=== PATIENT | male | born 1985 | race Caucasian/White ===

== ENCOUNTER 2019-03-02 09:58 | Inpatient (IN) ==
--- NOTE | 2019-03-02 10:55 | Emergency Department Note ---
ED Disposition Clinical Impression: Spontaneous pneumothorax Disposition: Admitted As Inpatient Condition on Discharge: Fair Referrals: Provider,Referral, [Referring] - - Critical Care Critical Care Time: No Attestation: On 03/02/19, the high probability of a clinically significant, sudden or life threatening deterioration of the following system(s) required my full and direct attention, intervention and personal management. The time I documented below is in addition to time spent performing reported procedures but includes the following listed in this critical care notation. Medical Decision Making - George Inquiry Pt receiving controlled substance: Yes George was queried for this patient: No Reason not queried -: Emergent pt cond-no time Risks and benefits of using a controlled substance: were not discussed with pt by me Vital Signs: 03/02/19 10:21 03/02/19 10:57 03/02/19 11:09 Temperature 98.7 F 98 F Temperature Source Oral Oral Pulse Rate [Right Apical] 98 H 70 62 Respiratory Rate 18 18 Blood Pressure [Right Arm] 122/73 132/87 132/87 Blood Pressure Mean [Right Arm] 89 102 102 Blood Pressure Source [Right Arm] Automatic Cuff Blood Pressure Position [Right Arm] Sitting 02 Sat by Pulse Oximetry 100 98 96 Oxygen Delivery Method Room Air Oxygen Flow Rate (LPM) 03/02/19 11:53 03/02/19 12:05 03/02/19 12:08 Temperature Temperature Source Pulse Rate [Right Apical] 59 L 87 56 L Respiratory Rate 15 16 Blood Pressure [Right Arm] 117/75 173/90 H 126/75 Blood Pressure Mean [Right Arm] 89 117 92 Blood Pressure Source [Right Arm] Automatic Cuff Automatic Cuff Automatic Cuff Blood Pressure Position [Right Arm] Sitting Supine Sitting 02 Sat by Pulse Oximetry 98 94 L 97 Oxygen Delivery Method Nasal Cannula Room Air Oxygen Flow Rate (LPM) 2 03/02/19 12:34 Temperature Temperature Source Pulse Rate [Right Apical] 65 Respiratory Rate Blood Pressure [Right Arm] 152/57 H Blood Pressure Mean [Right Arm] 88 Blood Pressure Source [Right Arm] Automatic Cuff Blood Pressure Position [Right Arm] Sitting 02 Sat by Pulse Oximetry 99 Oxygen Delivery Method Oxygen Flow Rate (LPM) - Lab Data Lab Results 03/02/19 11:50: WBC 14.0 H, RBC 4.73, Hgb 14.5, Hct 42.0, MCV 88.7, MCH 30.6, MCHC 34.5, RDW 12.7, Plt Count 297, MPV 7.0 L, Neut % (Auto) 58.6, Lymph % (Auto) 27.4, [place] % (Auto) 5.4, Eos % (Auto) 8.1, Baso % (Auto) 0.5, Neut # ( Auto) 8.2 H, Lymph # (Auto) 3.8, [place] # (Auto) 0.8, Eos # (Auto) 1.1 H, Baso # (Auto) 0.1 03/02/19 11:50: Sodium 138, Potassium 3.9, Chloride 102, Carbon Dioxide 28, Anion Gap 11.9, BUN 9, Creatinine 0.77, Estimated Creat Clear 188, Estimated GFR 116, Est GFR ( Amer) 141, Glucose 87, Calcium 9.0 Result diagrams: 03/02/19 11:50 03/02/19 11:50 Orders (Tests/Meds): ED MEDICATIONS Discontinued Medications Generic Name Dose Route Start Last Admin Trade Name Freq PRN Reason Stop Dose Admin Ketamine HCl 100 mg 03/02/19 12:00 Ketamine 500mg/10ml Vial IV 03/02/19 12:01 ONCE ONE Morphine Sulfate 4 mg 03/02/19 11:06 03/02/19 12:00 Morphine 4mg/Ml Syringe IV 03/02/19 11:07 4 mg ONCE ONE Administration Ondansetron HCl 4 mg 03/02/19 11:06 03/02/19 12:00 Zofran 4mg/2ml Vial IV 03/02/19 11:07 4 mg ONCE ONE Administration - Radiology Data #1 Image(s): Chest Image Reviewed: Yes I reviewed the patient's radiology image, Yes I have rev iewed radiologist's interpretation IMPRESSION: Moderate-sized right-sided hydropneumothorax with suggestion of some mild tension. Concur with ER preliminary report Dictated By: Varinder Nix MD Signed By: <Electronically signed by Varinder Nix MD in [place]> 03/02/19 1104 #2 Image(s): Chest Image Reviewed: Yes I reviewed the patient's radiology image Chest tube in good position with good reexpansion of the lung. - Physician Consults Physician Consulted: Allran Time: 11:25 Reason -: Surgical Eval/Care Comment/Response: Requests that I put in thoracostomy tube. 20 cm H2O suction Medical Decision Narrative: 12:00 PM: The patient had poor venous access and emergency department nurse was unable to establish IV. PICC line nurse called to the emergency department and she established a peripheral IV with ultrasound. As I was starting to prep the patient for thoracostomy tube, Dr. Jay arrived and states that he will put in the chest tube himself. General Adult HPI - General Stated complaint: soa Time Seen by Provider: 03/02/19 11:00 Mode of Arrival: Ambulatory Source of Information: Patient Limitations: No Limitations Description of Symptoms (Recalled from ER Triage Doc. by RN): pt C/O SOA and bed chest and back pain from coughing for 2 weeks. Pt states he was seen in the ER 2 weeks ago and ist getting any better - History of Present Illness HPI narrative: Complains of right sided pleuritic chest pain and cough for 2 weeks, steadily worsening. Seen at the [place] emergency department a week ago with a negative work-up, started on antibiotic and steroids. Patient is a smoker. No chronic medical problems except that he takes Suboxone for opiate addiction, clean for 2 years. Seen at the urgent treatment center and had a chest x-ray which shows a right-sided pneumothorax, sent to the emergency room. Last ate at 2 in the morning. Only sips of coffee since then. - Related Data Home Medications Medication Instructions Recorded Confirmed Buprenorphine HCl/Naloxone HCl 1 film SL DAILY 03/02/19 03/02/19 [Suboxone 8 mg-2 mg Sl Film] Allergies Allergy/AdvReac Type Severity Reaction Status Date / Time codeine [CODEINE] Allergy Intermediate NA-NAUSEA Verified 03/02/19 12:45 tramadol [TRAMADOL] Allergy Intermediate NA-NAUSEA Verified 03/02/19 12:45 [facility] History - Hepatitis A Screen Drug use history?: No High risk sexual behaviors?: No History of sexually transmitted infection?: No Currently employed?: No Childcare worker?: No Do you have indoor plumbing?: Yes Do you have electricity?: Yes Attestation statement:: This patient has been screened for Hepatitis A risk factors. I have reviewed the patient's past medical history: Yes - Social History Alcohol Intake: never Occupational Status: employed - Psychiatric History Expresses thoughts of harming self/others: None Suicide Plan Description: No Plan ROS Obtained: Yes All systems reviewed & no additional complaints - Constitutional Constitutional: Denies fever(s) - Cardiovascular Cardiovascular: Reports chest pain - Respiratory Respiratory: Yes cough, Yes non-productive cough, Yes dyspnea Physical Exam - General General appearance: alert, in no apparent distress - Head Head exam: atraumatic, normocephalic - Eye Eye exam: Present: normal appearance, PERRL, EOMI - ENT ENT exam: Present: mucous membranes moist - Neck Neck exam: Present: normal inspection, trachea midline, other (No palpable subcutaneous air) - Chest Chest inspection: Present: normal inspection - Respiratory Respiratory exam: Present: other (Decreased breath sounds right side) - Cardiovascular Cardiovascular exam: Present: regular rate, normal rhythm, normal heart sounds - Abdominal Exam Abdominal exam: Present: soft. Absent: distention, tenderness - Extremities Exam Extremities exam: Present: normal inspection, full ROM - Neurological Exam Neurological exam: Present: alert, oriented X3 - Psychiatric Psychiatric exam: Present: normal affect, normal mood - Skin Skin exam: Present: warm, dry Procedures - Procedural Sedation Indication: other (pneumothorax) ASA Class: I Preparation: quality assurance monitor final applied, pulse oximeter, supplemental O2 applied, suction/airway equipment at bedside, IV secured Ketamine: IV Ketamine dose (mg): 100
[2019-03-02 12:04] LABS: Anion Gap 11.9 mEq/L (5-15); Potassium 3.9 mmoL/L (3.5-5.1)
[2019-03-02 12:07] LABS: Basophils # 0.1 K/mm3 (0-0.2); Basophils % 0.5 % (0.1-2.0); Eosinophils # 1.1 K/mm3 (0.0-0.4); Eosinophils % 8.1 % (0.1-12.0); Hemoglobin 14.5 g/dL (14.1-18.0); Lymphocytes # 3.8 K/mm3 (0.7-4.5); Lymphocytes % 27.4 % (10-50); Mean Corpuscular HGB Conc 34.5 g/dL (31.8-35.4); Mean Corpuscular Hemoglobin 30.6 pg (27.0-31.2); Mean Corpuscular Volume 88.7 fl (80-94); Monocytes # 0.8 K/mm3 (0.1-1.0); Monocytes % 5.4 % (1.7-9.3); Neutrophils # 8.2 K/mm3 (1.8-7.8); Neutrophils % 58.6 % (37.0-80.0); Platelet Count 297 K/mm3 (142-424); Red Blood Count 4.73 M/mm3 (4.60-6.20); Red Cell Distribution Width 12.7 % (11.5-17.5)
--- NOTE | 2019-03-02 13:16 | History & Physical Report ---
*Admission Date: 03/02/19 *Chief complaint: Cough, shortness of breath *History of present illness: Patient is a 33-year-old white male. He states that for a couple of weeks he has had progressive symptoms of cough and had developed some right-sided chest pain. He had been seen apparently about a week ago in [place] and had a negative work-up. Due to ongoing symptoms he presented to [facility] emergency department where he had a chest x-ray which revealed findings of moderate sized right-sided pneumothorax. Surgery was contacted and plan was made for admission and chest tube placement due to his symptomatology. [facility] History I have reviewed the patient's past medical history: Yes *Have you ever received a pneumonia vaccine?: No *Have you received a flu vaccine this season?: No - *Social History Smoking Status: Current every day smoker Alcohol Intake: never *Occupational Status:: employed *Travel in the last 8 weeks: None - Psychiatric History Expresses thoughts of harming self/others: None Suicide Plan Description: No Plan Family Hx:: No significant family history Review of Systems - Review of Systems Review of systems:: pertinent systems reviewed and negative unless documented below Meds Home Medications Medication Instructions Recorded Confirmed Type Buprenorphine HCl/Naloxone HCl 1 film SL DAILY 03/02/19 03/02/19 History [Suboxone 8 mg-2 mg Sl Film] Allergies Allergy/AdvReac Type Severity Reaction Status Date / Time codeine [CODEINE] Allergy Intermediate NA-NAUSEA Verified 03/02/19 12:45 tramadol [TRAMADOL] Allergy Intermediate NA-NAUSEA Verified 03/02/19 12:45 Exam Vital signs and Labs for Last 24 Hours: Temp Pulse Resp BP Pulse Ox 98 F 65 16 152/57 H 99 03/02/19 10:57 03/02/19 12:34 03/02/19 12:18 03/02/19 12:34 03/02/19 12:34 Laboratory Results - last 24 hr 03/02/19 11:50: WBC 14.0 H, RBC 4.73, Hgb 14.5, Hct 42.0, MCV 88.7, MCH 30.6, MCHC 34.5, RDW 12.7, Plt Count 297, MPV 7.0 L, Neut % (Auto) 58.6, Lymph % (Auto) 27.4, [place] % (Auto) 5.4, Eos % (Auto) 8.1, Baso % (Auto) 0.5, Neut # (Auto) 8.2 H, Lymph # (Auto) 3.8, [place] # (Auto) 0.8, Eos # (Auto) 1.1 H, Baso # (Auto) 0.1 03/02/19 11:50: Sodium 138, Potassium 3.9, Chloride 102, Carbon Dioxide 28, Anion Gap 11.9, BUN 9, Creatinine 0.77, Estimated Creat Clear 188, Estimated GFR 116, Est GFR ( Amer) 141, Glucose 87, Calcium 9.0 I & O for Last 24 hours: Intake & Output 02/28/19 03/01/19 03/02/19 03/03/19 11:59 11:59 11:59 11:59 Weight 215 lb - *Routine HEENT Exam Head: Present: normocephalic Eye: Present: EOMI, PERRL ENT: Present: mucous membranes moist - *Routine Neck Exam Present: supple. Absent: lymphadenopathy - *Routine Respiratory Exam Present: decreased breath sounds Comments: Somewhat distant breath sounds on the right - *Routine Cardiovascular Exam Present: RRR - *Routine Abdominal Exam Present: soft, normoactive bowel sounds. Absent: tenderness - *Routine Extremities Exam Absent: cyanosis, clubbing, edema - *Routine Skin Exam Present: warm. Absent: rash - *Routine Neurological Exam Present: alert, oriented X3 - Detailed Eye Exam Eyelids: Left normal inspection Assessment and Plan - Assessment and plan all Dx Assessment and Plan for all problems:: Plan for chest tube placement and admission for management of spontaneous pneumothorax
--- NOTE | 2019-03-02 13:19 | Procedure Note ---
[facility] Procedure Note Procedure Note:: Preoperative diagnosis: Right spontaneous pneumothorax Procedure: Placement of right-sided 20 British thoracostomy tube Anesthesia: Local with 100 mg ketamine Patient was maintained on the stretcher in the emergency department. His right chest was prepped and draped in the standard surgical fashion. Local anesthetic was infiltrated in the right anterior lateral chest. Incision was made. Blunt dissection was carried down dissecting superiorly over the underlying rib. Pleural space was entered with wei of air. 20 British chest tube was inserted manipulating it anteriorly and superiorly. It was secured with 0 Surgilon at approximately 18 cm osmel and secured to the Pleur-evac. Clean dry sterile d ressing was applied. Patient tolerated procedure with no immediate complications.
--- NOTE | 2019-03-02 15:22 | Pharmacy Consult Notes ---
[facility] Pharmacy VTE Monitoring - Patient Demographics Admission date: 03/02/19 Report Date: 03/02/19 Time: 15:21 Allergies/Adverse Reactions: Patient Allergies codeine [CODEINE] Allergy (Intermediate, Verified 03/02/19 12:45) NA-NAUSEA tramadol [TRAMADOL] Allergy (Intermediate, Verified 03/02/19 12:45) NA-NAUSEA Height: 1.91 m Weight: 94.347 kg Patient Problems: Current Active Problems (Updated 03/02/19 @ 12:04 by Hola Cintron MD) Spontaneous pneumothorax (Acute) - VTE Risk Labs: VTE Related Lab Results Hgb 14.5 g/dL (14.1-18.0) 03/02/19 11:50 Hct 42.0 % (42.0-52.0) 03/02/19 11:50 Plt Count 297 K/mm3 (142-424) 03/02/19 11:50 BUN 9 mg/dL (7-18) 03/02/19 11:50 Creatinine 0.77 mg/dL (0.70-1.30) 03/02/19 11:50 Estimated Creat Clear 188 mL/min (50-200) 03/02/19 11:50 Was VTE Risk Assessment Performed: Yes VTE Score: 0 VTE Risk Level: Very Low Risk Clinical Trial Participant: No - Prophylaxis VTE Prophylaxis Ordered?: Yes Types of VTE Prophylaxis: TEDS Knee High
--- NOTE | 2019-03-03 07:37 | Progress Note ---
Subjective Patient reports: feels better Narrative: Patient feels much better. No chest pain. Breathing better. Chest tube without air leak. Exam Vital signs and Labs for Last 24 Hours: Temp Pulse Resp BP Pulse Ox 97.8 F 51 L 18 110/61 96 03/03/19 04:00 03/03/19 04:00 03/03/19 04:00 03/03/19 04:00 03/03/19 04:00 Laboratory Results - last 24 hr 03/02/19 11:50: WBC 14.0 H, RBC 4.73, Hgb 14.5, Hct 42.0, MCV 88.7, MCH 30.6, MCHC 34.5, RDW 12.7, Plt Count 297, MPV 7.0 L, Neut % (Auto) 58.6, Lymph % (Auto) 27.4, [place] % (Auto) 5.4, Eos % (Auto) 8.1, Baso % (Auto) 0.5, Neut # (Auto) 8.2 H, Lymph # (Auto) 3.8, [place] # (Auto) 0.8, Eos # (Auto) 1.1 H, Baso # (Auto) 0.1 03/02/19 11:50: Sodium 138, Potassium 3.9, Chloride 102, Carbon Dioxide 28, Anion Gap 11.9, BUN 9, Creatinine 0.77, Estimated Creat Clear 188, Estimated GFR 116, Est GFR ( Amer) 141, Glucose 87, Calcium 9.0 I & O for Last 24 hours: Intake & Output 02/28/19 03/01/19 03/02/19 03/03/19 11:59 11:59 11:59 11:59 Intake Total 1160 / 1160 Output Total 65 / 65 Balance 1095 / 1095 Weight 215 lb 207 lb 15.992 oz Microbiology Reports for the Last 24 Hours: Microbiology 03/02/19 19:25 Sputum - Expectorated Sputum Gram Stain - Final - *Routine Respiratory Exam Present: CTA bilaterally Progress Note: A&P Assessment and Plan for All Diagnoses:: Check chest x-ray and pending this we will plan for placement on waterseal.
--- NOTE | 2019-03-04 07:22 | Progress Note ---
Subjective Patient reports: feels better Exam Vital signs and Labs for Last 24 Hours: Temp Pulse Resp BP Pulse Ox 98.0 F 46 L 15 104/54 L 95 03/04/19 04:00 03/04/19 04:00 03/04/19 04:00 03/04/19 04:00 03/04/19 04:00 I & O for Last 24 hours: Intake & Output 03/01/19 03/02/19 03/03/19 03/04/19 11:59 11:59 11:59 11:59 Intake Total 1520 / 1520 1083 / 1083 Output Total 65 / 65 Balance 1455 / 1455 1083 / 1083 Weight 215 lb 207 lb 15.992 oz 210 lb 1 oz Microbiology Reports for the Last 24 Hours: Microbiology 03/02/19 19:25 Sputum - Expectorated Sputum Gram Stain - Final 03/02/19 19:25 Sputum - Expectorated Sputum Sputum Culture - Preliminary - *Routine Respiratory Exam Present: CTA bilaterally Progress Note: A&P Assessment and Plan for All Diagnoses:: No air leak. CXR this morning reveals no evidence of PTX. Removed chest tube. DC telemetry. Possible discharge later today.
--- NOTE | 2019-03-04 15:51 | Progress Note ---
Subjective Narrative: No complaints. Does have some soreness but this is no worse and he feels much better than upon presentation. Exam Vital signs and Labs for Last 24 Hours: Temp Pulse Resp BP Pulse Ox 97.8 F 58 L 16 129/69 99 03/04/19 08:00 03/04/19 08:00 03/04/19 08:00 03/04/19 08:00 03/04/19 12:00 I & O for Last 24 hours: Intake & Output 03/02/19 03/03/19 03/04/19 03/05/19 11:59 11:59 11:59 11:59 Intake Total 1520 / 1520 1563 / 1563 480 / 480 Output Total 65 / 65 Balance 1455 / 1455 1563 / 1563 480 / 480 Weight 215 lb 207 lb 15.992 oz 210 lb 1 oz Microbiology Reports for the Last 24 Hours: Microbiology 03/02/19 19:25 Sputum - Expectorated Sputum Gram Stain - Final 03/02/19 19:25 Sputum - Expectorated Sputum Sputum Culture - Final Normal Respiratory Jeanne - Routine Chest/Breast/Axilla Exam Comments: Chest tube site clean and dressed Progress Note: A&P Assessment and Plan for All Diagnoses:: Discharge home
--- NOTE | 2019-03-04 15:55 | Discharge Summary ---
General - General Admission date:: 03/02/19 Discharge date: 03/04/19 HPI HPI: Patient is a 33-year-old white male. He states that for a couple of weeks he has had progressive symptoms of cough and had developed some right-sided chest pain. He had been seen apparently about a week ago in [place] and had a negative work-up. Due to ongoing symptoms he presented to [facility] emergency department where he had a chest x-ray which revealed findings of moderate sized right-sided pneumothorax. Surgery was contacted and plan was made for admission and chest tube placement due to his symptomatology. Hospital Course Hospital Course: Patient underwent placement of right thoracostomy tube in the emergency department. This was uneventful. Postprocedure chest x-ray revealed near complete resolution of the pneumothorax. Initially he did have some air leak. Chest tube was placed to 20 cm suction. He was admitted for inpatient management and placed on telemetry. Following morning he felt better. There is no evidence of any air leak. Chest x-ray revealed only a sliver of remaining pneumothorax. Chest tube was placed to waterseal. The next day the patient was doing well. Chest x-ray on the morning of 03/04/2019 revealed no evidence of any residual pneumothorax and there is no evidence of any air leak. Chest tube was removed early that morning. Patient was observed throughout the day and remained asymptomatic regarding chest pain or shortness of breath other than some chest discomfort at the chest tube site. Follow-up PA and lateral chest x- ray that afternoon revealed no evidence of any pneumothorax. Plan was made for discharge home at that time. Patient is to follow-up in the office in 1 week for removal of the chest tube suture. He is to refrain from heavy lifting at work and strenuous activity until follow-up. He is given no additional medications. Objective Vital signs: Temp Pulse Resp BP Pulse Ox 97.8 F 58 L 16 129/69 99 03/04/19 08:00 03/04/19 08:00 03/04/19 08:00 03/04/19 08:00 03/04/19 12:00 - Detailed Eye Exam Eyelids: Left normal inspection Discharge Plan - Patient Discharge Instructions ACTIVITY: No heavy lifting DIET: regular diet Patient Instructions: Pneumothorax, DI for Pneumothorax, DI for Surgical Site Infection, DI for Chest Tube Insertion - Follow up Plan Follow up with: Florentin Jay MD [Staff Physician] - 1 week Disposition: Home, Self-Retirement Medications: Home Medications Medication Instructions Recorded Confirmed Type Buprenorphine HCl/Naloxone HCl 2 film SL DAILY 03/02/19 03/02/19 History [Suboxone 8 mg-2 mg Sl Film] Prescriptions/Medication Reconciliation: Continued Buprenorphine HCl/Naloxone HCl [Suboxone 8 mg-2 mg Sl Film] 2 film SL DAILY
== END 2019-03-04 16:30 | disposition home or self-care (01) | DRG 201 ==
LOC: ER 09:58 → UTC 09:58 → ICU 12:56 → 2ND 03-03 15:00
PROVIDERS: ADMIT Surgery; ATTEND Surgery
CPT/HCPCS: J2405

== ENCOUNTER 2019-03-11 18:06 | Inpatient (IN) | payer MEDICAID, SELFPAY ==
--- NOTE | 2019-03-11 13:32 | XR_ITS ---
XR chest 2V 524 at 1340 hours. HISTORY: . Recent pneumothorax. Recurrent chest pain. ITS.REASON: chest pain ORDERING PHYSICIAN: Florentin Jay MD PATIENT AGE: 33 years Technique: AP PA and lateral CXR COMPARISON is made to the most recent set of chest film from 03/04/2019 Right chest tube was evident on the early CXR from 03/04/2019. The lateral film shows a chest tube removed in the right lung fully expanded Today's study. Reveals a recurrent prominent right pneumothorax / with hydropneumothorax evident towards right base Estimate today's moderate recurrent right pneumothorax at 25%-up to 30 % PTX.. (. It is not as pronounced as the initial pneumothorax seen on 03/02/2019 CXR) Mild atelectasis is seen throughout right lung . There is no shift of the mediastinum.. Heart remains midline. The ranjit and mediastinal structures appear satisfactory. Left ranjit upper normal prominence but unchanged. Left lung clear unremarkable. Scant fluid outlines the fissures on lateral view. Critical result called to [facility] and Dr. Jay's office on 03/11/2019 3:04 PM . IMPRESSION Recurrent.Moderate Right Pneumothorax./With Hydropneumothorax Estimated 25-up to 30% right PTX . No midline shift. Left lung clear
--- NOTE | 2019-03-11 15:52 | HMH.GSHP ---
HPI HPI: Patient is a 33-year-old white male who had presented to the emergency department on 03/02/2019 with a 2-week history of respiratory complaints. He had allegedly been seen in the emergency department in [place] with a negative work-up. When he presented here he was found to have a large right pneumothorax. Surgery was consulted and he underwent placement of right chest tube in the emergency department. This resulted in essentially immediate full expansion of the right lung. He had quick resolution of air leak and the following day his chest tube was placed on waterseal. Serial x-rays revealed no evidence of any recurrent pneumothorax and he had no air leak. Therefore his chest tube was removed without incident in the unload associate hours of 03/04/2019. Patient was observed throughout that day and later that afternoon he underwent follow-up chest x-ray which revealed no evidence of any pneumothorax. Patient was therefore discharged home in the afternoon of 03/04/2019. He was scheduled to follow-up in the office today for chest tube site suture removal and incision inspection. When he presented to the office he was doing well. Denied any shortness of breath or chest pain. Interestingly, he stated that he had some bubbling sensation the day after discharge. This then resolved. Upon further questioning he states that he had some right-sided back pain which he attributed to work. He therefore underwent chest x-ray. This reveals appreciable right-sided pneumothorax measuring, according to the radiology report, 25%. Plan was made for admission for management of recurrent pneumothorax with possible chest tube placement. [facility] History Medical History: Denies:: Cancer *Have you ever received a pneumonia vaccine?: No *Have you received a flu vaccine this season?: No Other Surgeries: Yes: Other - *Social History Smoking Status: Current every day smoker Tobacco Type: cigarettes # Packs/Day (cigarettes): 1 Alcohol Intake: never *Occupational Status:: employed Housing: apartment *Travel in the last 8 weeks: None Family Hx:: Asthma, Cancer, Diabetes, Heart Attack, Hyperlipidemia, Hypertension Review of Systems - Review of Systems Review of systems:: pertinent systems reviewed and negative unless documented below - Constitutional Denies anorexia - Eyes Denies change in vision - ENT Denies abnormal hearing - *Cardiovascular Denies chest pain - *Respiratory Reports cough, Denies shortness of breath - *Gastrointestinal Denies abdominal pain - *Genitourinary Denies difficulty urinating - *Musculoskeletal Reports back pain - *Neurologic Denies dizziness Meds Home Medications Medication Instructions Recorded Confirmed Type Buprenorphine HCl/Naloxone HCl 2 film SL DAILY 03/02/19 03/11/19 History [Suboxone 8 mg-2 mg Sl Film] Allergies Allergy/AdvReac Type Severity Reaction Status Date / Time codeine [CODEINE] Allergy Intermediate NA-NAUSEA Verified 03/11/19 13:24 tramadol [TRAMADOL] Allergy Intermediate NA-NAUSEA Verified 03/11/19 13:24 Exam - *Routine HEENT Exam Head: Present: normocephalic Eye: Present: EOMI, PERRL ENT: Present: mucous membranes moist - *Routine Neck Exam Present: supple. Absent: lymphadenopathy - *Routine Respiratory Exam Comments: He has very slightly decreased breath sounds on the right hemithorax. - *Routine Cardiovascular Exam Present: RRR - *Routine Abdominal Exam Present: soft, normoactive bowel sounds. Absent: tenderness - *Routine Extremities Exam Absent: cyanosis, clubbing, edema - *Routine Skin Exam Present: warm. Absent: rash - *Routine Neurological Exam Present: alert, oriented X3 - Detailed Eye Exam Eyelids: Left normal inspection Assessment and Plan - Assessment and plan all Dx Assessment and Plan for all problems:: Plan will be for direct admission with observation. Incentive spirometer. Repeat chest x-ray tomorrow
--- NOTE | 2019-03-11 15:56 | P.HP_ITS ---
HPI HPI: Patient is a 33-year-old white male who had presented to the emergency department on 03/02/2019 with a 2-week history of respiratory complaints. He had allegedly been seen in the emergency department in [place] with a negative work-up. When he presented here he was found to have a large right pneumothorax. Surgery was consulted and he underwent placement of right chest tube in the emergency department. This resulted in essentially immediate full expansion of the right lung. He had quick resolution of air leak and the follow ing day his chest tube was placed on waterseal. Serial x-rays revealed no evidence of any recurrent pneumothorax and he had no air leak. Therefore his chest tube was removed without incident in the aircraft rigging and controls mechanic hours of 03/04/2019. Patient was observed throughout that day and later that afternoon he underwent follow-up chest x-ray which revealed no evidence of any pneumothorax. Patient was therefore discharged home in the afternoon of 03/04/2019. He was scheduled to follow-up in the office today for chest tube site suture removal and incision inspection. When he presented to the office he was doing well. Denied any shortness of breath or chest pain. Interestingly, he stated that he had some bubbling sensation the day after discharge. This then resolved. Upon further questioning he states that he had some right-sided back pain which he attributed to work. He therefore underwent chest x-ray. This reveals appreciable right- sided pneumothorax measuring, according to the radiology report, 25%. Plan was made for admission for management of recurrent pneumothorax with possible chest tube placement. [facility] History Medical History: Denies:: Cancer *Have you ever received a pneumonia vaccine?: No *Have you received a flu vaccine this season?: No Other Surgeries: Yes: Other - *Social History Smoking Status: Current every day smoker Tobacco Type: cigarettes # Packs/Day (cigarettes): 1 Alcohol Intake: never *Occupational Status:: employed Housing: apartment *Travel in the last 8 weeks: None Family Hx:: Asthma, Cancer, Diabetes, Heart Attack, Hyperlipidemia, Hypertension Review of Systems - Review of Systems Review of systems:: pertinent systems reviewed and negative unless documented below - Constitutional Denies anorexia - Eyes Denies change in vision - ENT Denies abnormal hearing - *Cardiovascular Denies chest pain - *Respiratory Reports cough, Denies shortness of breath - *Gastrointestinal Denies abdominal pain - *Genitourinary Denies difficulty urinating - *Musculoskeletal Reports back pain - *Neurologic Denies dizziness Meds Home Medications Medication Instructions Recorded Confirmed Type Buprenorphine HCl/Naloxone HCl 2 film SL DAILY 03/02/19 03/11/19 History [Suboxone 8 mg-2 mg Sl Film] Allergies Allergy/AdvReac Type Severity Reaction Status Date / Time codeine [CODEINE] Allergy Intermediate NA-NAUSEA Verified 03/11/19 13:24 tramadol [TRAMADOL] Allergy Intermediate NA-NAUSEA Verified 03/11/19 13:24 Exam - *Routine HEENT Exam Head: Present: normocephalic Eye: Present: EOMI, PERRL ENT: Present: mucous membranes moist - *Routine Neck Exam Present: supple. Absent: lymphadenopathy - *Routine Respiratory Exam Comments: He has very slightly decreased breath sounds on the right hemithorax. - *Routine Cardiovascula
[2019-03-11 18:28] VITALS: BP 147/63; PULSE 68; RESP 17; TEMP 36.7; O2SAT 96; BMI 25.9
[2019-03-11 20:00] VITALS: BP 120/67; PULSE 72; RESP 18; TEMP 36.5; O2SAT 97
[2019-03-12] VITALS (23 sets, daily range): BP systolic 100–128; BP diastolic 55–68; PULSE 50–75; RESP 16–20; TEMP 36.4–37.1; O2SAT 95–99; BMI 26.2
--- NOTE | 2019-03-12 03:34 | PC.NURSE ---
Pt. rested well this am. Is alert and oriented. VS have remained stable. Lung sounds are diminished and bowel sounds are active. Pt. has not complained of any pain. Will continue to monitor.
--- NOTE | 2019-03-12 07:00 | XR_ITS ---
XR chest 2V HISTORY: ITS.REASON: CHEST PAIN, PNEUMOTHORAX ORDERING PHYSICIAN: Florentin Jay MD PATIENT AGE: 33 years Technique: PA and lateral chest COMPARISON: Yesterday's PA and lateral chest . FINDINGS: Again see the moderate right pneumothorax.. It appears similar size superiorly overlying the RUL; but I believe slightly larger inferiorly overlying the right lower lobe. Overall estimate 25-30% pneumothorax. No midline shift at mediastinal. Note slight additional fluid at right base reflecting the hydropneumothorax aspect. Slight additional atelectasis at right lower lobe left lung remains clear Left lung clear. Slight additional prominence of pulmonary vascularity bilaterally on today's CXR may reflect some additional IV hydration.... But no overt CHF. Heart is normal in size. Chest wall unremarkable. No obvious rib fractures. T-spine intact. Claudette and mediastinal structures satisfactory IMPRESSION...... 1. Moderate size right pneumothorax again seen. Estimate 25-30% hydropneumothorax with PTX appearing incrementally larger towards right lung base than yesterday CXR study 2. Mediastinum remains midline. No good evidence of tension . Mild atelectasis right lower lobe
--- NOTE | 2019-03-12 07:23 | PC.NURSE ---
REPORTED TO Lina JAMES
--- NOTE | 2019-03-12 09:08 | XR_ITS ---
XR chest portable #2 Performed at 9:05 AM HISTORY: Pneumothorax ITS.REASON: chest tube ORDERING PHYSICIAN: Florentin Jay MD PATIENT AGE: 33 years Technique: AP portable supine chest COMPARISON: pCXR 03/12/2019 at 6:56 AM today Also PCXR 03/11/2019 at 1336 hours FINDINGS: COMPARISON is made to a chest film from earlier today as well as yesterday's CXR the moderate pneumothorax has increased slightly in size on on this morning's the CXR Thus we now see a chest tube placed on the right. It enters at the lower right chest with tip projected over the upper right chest. Right lung is expanded with only a tiny sliver residual apical pneumothorax remaining on this image. The atelectasis has improved at the right lung with right lung reexpansion. The left lung remains clear. The heart is normal in size. The ranjit and mediastinal structures appear satisfactory. I would note the left CP angle was not included on this current chest film IMPRESSION...... Right chest tube now place with right lung reexpanded Only a tiny sliver of residual pneumothorax evident at right lung apex at this point
--- NOTE | 2019-03-12 09:09 | HMH.GSPN ---
Subjective Patient reports: no new complaints Exam Vital signs and Labs for Last 24 Hours: Temp Pulse Resp BP Pulse Ox 97.9 F 60 17 100/66 L 97 03/12/19 07:48 03/12/19 07:48 03/12/19 07:48 03/12/19 07:48 03/12/19 07:48 I & O for Last 24 hours: Intake & Output 03/09/19 03/10/19 03/11/19 03/12/19 11:59 11:59 11:59 11:59 Intake Total 480 / 480 Balance 480 / 480 Weight 210 lb 4 oz - *Routine Respiratory Exam Present: distant breath sounds Progress Note: A&P Assessment and Plan for All Diagnoses:: Chest x-ray this morning reveals persistent approximately 30% pneumothorax. Plan for chest tube placement
--- NOTE | 2019-03-12 09:14 | P.PCN_ITS ---
[facility] Procedure Note Procedure Note:: Preoperative diagnosis: Recurrent spontaneous right pneumothorax Procedure performed: Placement of right 20 [place] thoracostomy tube Anesthesia: 1% Xylocaine, ketamine 75 mg, Versed 2 mg Indications: Patient is a 33-year-old white male. He was admitted last week with spontaneous right pneumothorax. He had chest tube placed which resulted in complete reexpansion of the lung. Chest tube was managed for several days and ultimately removed. Follow-up chest x-ray approximately 8 hours after removal revealed full complete expansion of the lung. Patient was discharged home. He presented to the office for follow-up yesterday and stated that the day after discharge she had some bubbling sensation in the right chest but otherwise has been doing well throughout the week and this resolved very quickly the day after discharge. He therefore underwent chest x-ray. This actually revealed a recurrent pneumothorax measuring 25 to 30% . Patient was admitted for inpatient management. Repeat chest x-ray the following morning revealed persistent moderate-sized pneumothorax. Plan was made for chest tube placement. Procedure: Consent was obtained. Patient was positioned supinely. Right hemithorax was prepped and draped. Local anesthetic was infiltrated in the right anterior lateral chest. Small incision was made approximately 15 mm. Dissection was carried down through subcutaneous tissues and intercostal muscles using blunt dissection over the rib. Pleural space was entered. 20 [place] chest tube was inserted. It was secured at approximately 18 cm omsel with a #2 silk suture horizontal mattress. Please note that additional simple #2 silk was placed centrally for ultimate closure of the site after removal. Xeroform dressing and clean dry sterile dressing was applied. Patient tolerated with no complications.
--- NOTE | 2019-03-12 09:32 | PC.NURSE ---
procedure performed on 2nd floor.
--- NOTE | 2019-03-12 11:29 | P.CONPHA_ITS ---
[facility] VTE Monitoring - Patient Demographics Admission date: 03/12/19 Report Date: 03/12/19 Time: 11:29 Allergies/Adverse Reactions: Patient Allergies codeine [CODEINE] Allergy (Intermediate, Verified 03/11/19 13:24) NA-NAUSEA tramadol [TRAMADOL] Allergy (Intermediate, Verified 03/11/19 13:24) NA-NAUSEA Height: 1.91 m Weight: 95.368 kg - VTE Risk Was VTE Risk Assessment Performed: Yes VTE Score: 0 VTE Risk Level: Very Low Risk - Prophylaxis Location of Applied Device: Refused - VTE Diagnosis Confirmed Comment: KAREN MARTINEZ ORDER PLACED
--- NOTE | 2019-03-12 11:29 | HMH.PHAINT ---
MED REC-PATIENT ONLY REPORTS SUBOXONE.
--- NOTE | 2019-03-12 13:50 | PC.NURSE ---
CHEST TUBE INSERTION TO RIGHT SIDE PERFORMED AT BEDSIDE BY DR. SOMMER AT 0830. VSS. NO DISTRESS NOTED. WILL CONTINUE TO MONITOR
[2019-03-13] VITALS (14 sets, daily range): BP systolic 99–140; BP diastolic 59–70; PULSE 5–81; RESP 16–18; TEMP 36.4–36.9; O2SAT 95–100; BMI 26.6
--- NOTE | 2019-03-13 04:50 | PC.NURSE ---
Pt. rested well this am. Is alert and oriented. VS have remained stable. Lung sounds in right side are noted to be diminished. Chest tube remains to suction. Pt. at start of shift complained of a popping feeling noted when he used his IS. Pt. called staff in with pt. stating to feel his chest when he used his IS. This RN could feel this pop when the pt. breathed in. Pt. was advised to not breath in as deeply as he was at that time. Pt. stated that he could still feel the popping any time he took a deep breath. Staff was not able to feel or hear it except only when using IS. MD made aware of this with MD stating he was not concerned and this can some times happen. Pt. has stated to have some pain and soreness at procedure site with medication being given from DEC. Will continue to monitor.
--- NOTE | 2019-03-13 07:00 | XR_ITS ---
XR chest portable HISTORY: Follow-up check pneumothorax ITS.REASON: PNEUMOTHORAX, CHEST TUBE ORDERING PHYSICIAN: Florentin Jay MD PATIENT AGE: 33 years COMPARISON: Portable spine chest 03/12/2019 FINDINGS: The cardiomediastinal silhouette and pulmonary vascularity are within normal limits. The lungs are clear without infiltrates, suspicious nodules, or pleural effusions. A 2 to 3 mm tiny apical pneumothorax remains. Otherwise lung leon are well expanded and clear of infiltrate. Is no pleural fluid. The chest remains in right upper chest. Monitor lines are seen overlying the chest. No acute bony abnormalities. IMPRESSION: Very tiny apical pneumothorax remaining
--- NOTE | 2019-03-13 07:21 | PC.NURSE ---
REPORTED TO Lina JAMES
--- NOTE | 2019-03-13 09:08 | HMH.GSPN ---
Subjective Narrative: Patient complains of soreness. Asking for Dilaudid like he had last week as opposed to morphine. He has a sensation of popping when he does deep breathing with incentive spirometer. Chest x-ray revealed a small apical pneumothorax, 2 to 3 mm . Inspection of the chest tube reveals a small air leak. Exam Vital signs and Labs for Last 24 Hours: Temp Pulse Resp BP Pulse Ox 97.5 F L 60 17 140/67 98 03/13/19 07:56 03/13/19 08:00 03/13/19 07:56 03/13/19 07:56 03/13/19 07:56 I & O for Last 24 hours: Intake & Output 03/10/19 03/11/19 03/12/19 03/13/19 11:59 11:59 11:59 11:59 Intake Total 480 / 480 1200 / 1200 Balance 480 / 480 1200 / 1200 Weight 210 lb 4 oz 213 lb 9 oz - *Routine Respiratory Exam Comments: He has a audible pleural rub on the right with deep breaths. No palpable subcutaneous emphysema. Progress Note: A&P Assessment and Plan for All Diagnoses:: Due to pleural rub and tiny intermittent air leak I will increase the suction to 40 cm overnight. Possible switch to waterseal tomorrow. Continue incentive spirometer. Add oral pain medication.
--- NOTE | 2019-03-13 15:17 | PC.NURSE ---
COURTESY ROUND: ICE WATER WAS REFUSED, & TRASH WAS TAKEN OUT.
--- NOTE | 2019-03-13 17:11 | PC.NURSE ---
Addendum entered by Chucho Murdock RN 03/13/19 18:39: CORRECTION: CHEST TUBE HAS DRAINED 140ML THIS SHIFT. DRAINAGE INCREASED WHEN PATIENT AMBULATED TO THE BATHROOM AND UP TO CHAIR IN THE LATE AFTERNOON AND AT DINNER TIME. Original Note: ALERT AND ORIENTED X4. FAMILY AT BEDSIDE. SEVERAL COMPLAINTS OF PAIN. PRN PAIN MEDS ADMINISTERED PER DEC. LUNGS ARE CLEAR BUT DIMINISHED ON RIGHT SIDE. CHEST TUBE IS CONNECTED TO SUCTION AT 40CM. CHEST TUBE IS SECURE AND PATENT. NO DRAINAGE THIS SHIFT. NO SIGNS OF AIR LEAK. APPETITE IS EXCELLENT. NO ADDITIONAL COMPLAINTS VOICED. VSS. NO DISTRESS NOTED. SAFETY MEASURES IN PLACE. WILL CONTINUE TO MONITOR
[2019-03-14] VITALS (10 sets, daily range): BP systolic 103–133; BP diastolic 49–69; PULSE 48–68; RESP 16–18; TEMP 36.4–36.8; O2SAT 96–99; BMI 27.1
--- NOTE | 2019-03-14 03:52 | PC.NURSE ---
Pt. rested well this am. Is alert and oriented. VS have remained stable. Lung sounds on right side are diminished with slight pleural rub being noted. This RN entered pt. room and found pt. in bathroom with chest tube unhooked from suction. Pt. and family states they unhooked suction. Pt. was placed back on suction and pt was assessed. No complaints stated, O2 stable and lung sounds assessed with no changes noted. Pt. was educated to not remove suction for pt. safety and verbalized understanding. Will continue to monitor.
--- NOTE | 2019-03-14 07:18 | PC.NURSE ---
REPORT GIVEN TO Jennifer NOBLE
--- NOTE | 2019-03-14 09:54 | HMH.GSPN ---
Subjective Patient reports: feels better Exam Vital signs and Labs for Last 24 Hours: Temp Pulse Resp BP Pulse Ox 97.6 F 58 L 16 122/56 L 99 03/14/19 07:55 03/14/19 07:55 03/14/19 07:55 03/14/19 07:55 03/14/19 07:55 I & O for Last 24 hours: Intake & Output 03/11/19 03/12/19 03/13/19 03/14/19 11:59 11:59 11:59 11:59 Intake Total 480 / 480 1200 / 1200 1080 / 1080 Output Total 0 / 0 Balance 480 / 480 1200 / 1200 1080 / 1080 Weight 210 lb 4 oz 213 lb 9 oz 216 lb 9 oz - *Routine Respiratory Exam Comments: Chest is clear to auscultation. No audible pleural rub. Progress Note: A&P Assessment and Plan for All Diagnoses:: Patient had a very limited air leak. Will place to 20 cm of suction today. Chest x-ray tomorrow. If no air leak and chest x-ray looks good may be able to place to waterseal.
--- NOTE | 2019-03-14 10:54 | PC.NURSE ---
pt asks for extension tubing so that he may go to and from the bathroom (rather than using a bedside commode). I called dr Jay. states okay to unhook tubing temporarily from the vacutainer-suction, if pt is only going to be a few minutes, but if pt is going to be a while, then add extension at the time pt needs to go to the bathroom.
--- NOTE | 2019-03-14 13:30 | PC.NURSE ---
pt's SO comes out to hallway and flags me to come in room. SO states she is concerned of a new rash she found on pt. small, dry bumps noted below the right axilla and above the tape of the chest tube. rash approx 6 side to side and 4 top to bottom. no redness or streaking noted. earlier this morning pt noted to be scratching that area profusely (on and above the old chest tube site/new chest tube site taped area). pt encouraged to not scratch there and the old site was cleaned with betadine swab. pt states that he has used betadine in the past and he does not believe that this rash is from the betadine. reassessed area at 1430 and the rash has not gotten any worse, rash is flesh-colored. Dr Jay has been on the floor (in another room this last hour). When MD comes to dictation room I advise him of the findings, the itching this morning and my cleaning old site with betadine. Md has no further orders.
--- NOTE | 2019-03-14 19:12 | PC.NURSE ---
report given to hakan
[2019-03-15] VITALS (8 sets, daily range): BP systolic 102–146; BP diastolic 54–79; PULSE 49–80; RESP 16–18; TEMP 36.2–37.3; O2SAT 93–100; BMI 27.0
--- NOTE | 2019-03-15 04:33 | PC.NURSE ---
PT CONTINUES WITH CHEST TUBE TO RIGHT LATERAL CHEST WALL AT 20CM SUCTION. PT AMBULATES INDEPENDENTLY. PT RECEIVING PRN MORPHINE AND LORTAB FOR PAIN PLUS SCHEDULED TORADOL. HAVE ENCOURAGE USE OF IS AND DEEP BREATHING. NSR ON TELEMTRY.
--- NOTE | 2019-03-15 06:00 | XR_ITS ---
XR chest portable 5:37 AM HISTORY: Follow-up pneumothorax ITS.REASON: SHORTNESS OF AIR, PNEUMOTHORAX ORDERING PHYSICIAN: Florentin Jay MD PATIENT AGE: 34 years COMPARISON: 03/13/2019 FINDINGS: There is been further decrease in size of the right-sided pneumothorax with only a minimal component in the apex.. Right-sided chest tube remains in place. Left lung is clear. There is a small amount of subcutaneous emphysema along the right chest wall. IMPRESSION: Further decrease in size of right pneumothorax with only minimal component in the right apex
--- NOTE | 2019-03-15 07:45 | HMH.GSPN ---
Subjective Narrative: Patient states that he feels well without complaints. Only minor soreness . Has been ambulating to the restroom with chest tube on suction. Chest x-ray this morning reveals only a very minimal pneumothorax. There is no evidence of any air leak. Exam Vital signs and Labs for Last 24 Hours: Temp Pulse Resp BP Pulse Ox 97.8 F 51 L 16 102/54 L 96 03/15/19 04:00 03/15/19 04:00 03/15/19 04:00 03/15/19 04:00 03/15/19 04:00 I & O for Last 24 hours: Intake & Output 03/12/19 03/13/19 03/14/19 03/15/19 11:59 11:59 11:59 11:59 Intake Total 480 / 480 1200 / 1200 1080 / 1080 960 / 960 Output Total 0 / 0 Balance 480 / 480 1200 / 1200 1080 / 1080 960 / 960 Weight 210 lb 4 oz 213 lb 9 oz 216 lb 9 oz 216 lb 8.996 oz - *Routine Respiratory Exam Present: CTA bilaterally Progress Note: A&P Assessment and Plan for All Diagnoses:: Place chest tube on waterseal.
--- NOTE | 2019-03-15 15:53 | PC.NURSE ---
Pt is alert and oriented X4, resp easy and unlabored, lung sounds diminished bilaterally. Chest tube to water seal, dressing to CT insertion site dry and intact. Pt has ambulated in hallway several times this shift and tolerated well. [place] 2 tabs administered X1 this shift, pt also getting Toradol 30mg IV every 6 hours routine. Will continue to monitor.
[2019-03-16] VITALS (10 sets, daily range): BP systolic 105–133; BP diastolic 56–72; PULSE 50–70; RESP 17–18; TEMP 36.4–36.9; O2SAT 94–99; BMI 27.0
--- NOTE | 2019-03-16 06:00 | XR_ITS ---
XR chest 2V HISTORY: Follow-up pneumothorax ITS.REASON: PNEUMOTHORAX ORDERING PHYSICIAN: Florentin Jay MD PATIENT AGE: 34 years COMPARISON: 03/15/2019 FINDINGS: The cardiomediastinal silhouette and pulmonary vascularity are within normal limits. Right-sided chest tube remains in place. Subcutaneous emphysema is noted in the right lateral chest wall. There remains a faint lucency in the right apex consistent with a very tiny residual pneumothorax. Left lung is clear. IMPRESSION: Tiny residual right apical pneumothorax with chest tube in place not significant changed with some residual subcutaneous emphysema on the right
--- NOTE | 2019-03-16 07:51 | HMH.GSPN ---
Subjective Patient reports: feels better Narrative: Denies shortness of breath or chest pain. CXR this morning revealed stable miniscule pneumothorax. No evidence of any air leak even when placing back on suction momentarily. Exam Vital signs and Labs for Last 24 Hours: Temp Pulse Resp BP Pulse Ox 98.1 F 66 17 121/69 99 03/16/19 07:41 03/16/19 07:41 03/16/19 07:41 03/16/19 07:41 03/16/19 07:41 I & O for Last 24 hours: Intake & Output 03/13/19 03/14/19 03/15/19 03/16/19 11:59 11:59 11:59 11:59 Intake Total 1200 / 1200 1080 / 1080 1440 / 1440 840 / 840 Output Total 0 / 0 0 / 0 102 / 102 Balance 1200 / 1200 1080 / 1080 1440 / 1440 738 / 738 Weight 213 lb 9 oz 216 lb 9 oz 216 lb 8.996 oz 216 lb - Routine Chest/Breast/Axilla Exam Comments: Chest tube site clean. - *Routine Respiratory Exam Present: CTA bilaterally Progress Note: A&P Assessment and Plan for All Diagnoses:: Removed chest tube.
--- NOTE | 2019-03-16 13:55 | DIET.NUTRFU ---
Nutritional screening completed by student judith under my supervision. Patient is eating well on a regular diet, 100%. No nutritional concerns at this time.
--- NOTE | 2019-03-16 16:25 | XR_ITS ---
XR chest 2V 1428 hours HISTORY: Follow-up pneumothorax, status post chest tube removal ITS.REASON: PNEUMOTHORAX ORDERING PHYSICIAN: Florentin Jay MD PATIENT AGE: 34 years COMPARISON: None FINDINGS: The cardiomediastinal silhouette and pulmonary vascularity are within normal limits. The lungs are clear without infiltrates, suspicious nodules, or pleural effusions. Right apical pneumothorax no longer identified. Right chest tube is been removed. There is some residual cutaneous emphysema along the right lateral chest wall. No acute bony abnormalities. IMPRESSION: Pneumothorax no longer apparent status post chest tube removal
--- NOTE | 2019-03-16 17:30 | PC.NURSE ---
courtesy round done, nakia taken out and gave pt and girlfriend pop.
--- NOTE | 2019-03-16 18:36 | PC.NURSE ---
0750 DR. SOMMER AT BEDSIDE, INSTRUCTED RN TO GET SUPPLIES TO REMOVED CHEST TUBE. RN PROVIDED SUPPLIES, CHEST TUBE REMOVED. XEROFORM, NON ADHESIVE DRESSING APPLIED AND SECURED WITH TEGADERM. PATIENT TOLERATED PROCEDURE WELL. 0758 PATIENT COMES OUT OF ROOM TO REPORT DRAINAGE FROM DRESSING, LARGE AMOUNT OF YELLOW DRAINAGE NOTED LEAKING OUT OF THE TEGADERM, DR. SOMMER IN STAFF ROOM, RN REPORTED FINDINGS TO MD TOMAS STATED THAT IS NORMAL AND GAVE ORDERS TO CHANGE DRESSING. RN REMOVED OLD DRESSING, RN CHANGED DRESSING, APPLIED XEROFORM, NON ADHESIVE DRESSING AND SECURED WITH TEGADERM, VITALS TAKEN: BP: 124/80; HR: 70; O2 98% RA; TEMP: 98.1. PATIENT TOLERATED DRESSING CHANGE WELL. 0810 PATIENT'S SIGNIFICANT OTHER COMES TO RN TO STATE DRESSING IS LEAKING AGAIN. RN ASSESSES DRESSING, DRESSING IS SATURATED WITH YELLOW LIQUID LEAKING FROM AROUND THE TEGADERM, RN REMOVED OLD DRESSING, APPLIED XEROFORM, NON ADHESIVE DRESSING AND SECURED WITH TEGADERM 0843 PATIENT CALLED OUT TO STATE HIS SITE IS LEAKING AGAIN, RN ASSESSED SITE, DRESSING IS SATURATED WITH YELLOW LIQUID LEAKING FROM AROUND THE TEGADERM, RN REMOVED OLD DRESSING, APPLIED XEROFORM, NON ADHESIVE DRESSING AND SECURED WITH TEGADERM. [address] SOMMER TO REPORT 3 DRESSING CHANGES SINCE TUBE REMOVAL, 0847 MD PHONED MD MESFIN ORDERED TO APPLY 4X4 GAUZE FOR MORE PRESSURE. 0952 DURING A DRESSING CHECK, PATIENT STATED THAT HE FEELS BUBBLING IN CHEST, RN ASSESSED LUNG SOUNDS, NO NEW FINDINGS, LUNG SOUNDS CLEAR AND DIMINSHED. RN NOTED RED BUMP RASH AROUND INCISION UP TO RIGHT UNDER ARM, PATIENT STATED HE HAD THE SAME RASH LAST TIME FROM THE TAPE. PATIENT STATED HE DOES NOT ITCH AND IT DOES NOT BOTHER HIM. 1320 PATIENT CALLED RN TO STATE HE WAS LEAKING AGAIN, RN ASSESSED SITE, DRESSING IS SATURATED WITH YELLOW LIQUID LEAKING FROM AROUND THE TEGADERM, RN REMOVED OLD DRESSING, APPLIED XEROFORM, NON ADHESIVE DRESSING, 4X4 AND SECURED WITH TEGADERM. 1350 PATIENT CALLED RN TO STATE HE WAS LEAKING AGAIN, RN ASSESSED SITE, DRESSING IS SATURATED WITH YELLOW LIQUID LEAKING FROM AROUND THE TEGADERM, RN REMOVED OLD DRESSING, APPLIED XEROFORM, NON ADHESIVE DRESSING, 4X4, ABD PAD, COVERED WITH LARGE TEGADERM, AND COBAN WRAPPED AROUND PATIENTS CHEST FOR PRESSURE. 1405: AT BEDSIDE, RN REPORTS MULTIPLY DRESSING CHANGES, MD STATED TO WATCH SITE AND TO CONTINUE DRESSING CHANGES PRN. 1855 NO DRAINAGE NOTED. NO NEW NEEDS OR CONCERNS AT THIS TIME.
--- NOTE | 2019-03-16 19:15 | PC.NURSE ---
report given to cassius
--- NOTE | 2019-03-17 03:40 | PC.NURSE ---
Pt is A&Ox4 and has ambulated in hallway several times and tolerate well. Pt has completed IS several times WA, reaching goal of 2500. Pt has denied any SOB of dyspnea. Pt does c/o pain to the chest tube removal site and anterior R chest, relieved w/ medication of Toradol & Chilo. Pt rested for a few hours during the night. Pt has denied any N/V/D and had a BM this shift. ABD is soft, non-tender and distended to upper ABD. pt states it has slowing increased t/o the day. Pt is passing flatus and belching some, active BS noted in all 4 quad. Pt encouraged to ambulate and continue oral fluids. Mild crepitus noted to R anterior chest. Serous Drainage noted to dressing over chest tube site, although it has not saturated through the ABD pad at this time. Intermittent cough noted, dry and weak, and pt reports sinus drainage d/t all this cold air in the hospital. VSS, call light within reach, will continue to monitor.
[2019-03-17 04:00] VITALS: BP 112/55; PULSE 55; RESP 16; TEMP 36.6; O2SAT 97; BMI 28.1
--- NOTE | 2019-03-17 06:00 | XR_ITS ---
XR chest 2V HISTORY: Follow-up pneumothorax and chest tube removal ITS.REASON: SHORTNESS OF AIR ORDERING PHYSICIAN: Florentin Jay MD PATIENT AGE: 34 years COMPARISON: 03/16/2019 FINDINGS: The cardiomediastinal silhouette and pulmonary vascularity are within normal limits. No evidence of pneumothorax. Small amount of subcutaneous emphysema once again noted along the right lateral chest wall. Small right apical blebs suspected. No acute bony findings. IMPRESSION: No evidence of pneumothorax. There are small right apical blebs and a small amount of subcutaneous emphysema in the right lateral chest wall
--- NOTE | 2019-03-17 06:50 | HMH.GSPN ---
Subjective Patient reports: no new complaints Exam Vital signs and Labs for Last 24 Hours: Temp Pulse Resp BP Pulse Ox 97.8 F 55 L 16 112/55 L 97 03/17/19 04:00 03/17/19 04:00 03/17/19 04:00 03/17/19 04:00 03/17/19 04:00 I & O for Last 24 hours: Intake & Output 03/14/19 03/15/19 03/16/19 03/17/19 11:59 11:59 11:59 11:59 Intake Total 1080 / 1080 1440 / 1440 840 / 840 1430 / 1430 Output Total 0 / 0 102 / 102 100 / 100 Balance 1080 / 1080 1440 / 1440 738 / 738 1330 / 1330 Weight 216 lb 9 oz 216 lb 8.996 oz 216 lb 225 lb 3 oz Radiology Reports for the Last 24 Hours: No obvious pneumothorax on this morning's chest x-ray - Constitutional no acute distress - *Routine Respiratory Exam Present: CTA bilaterally. Absent: respiratory distress - *Routine Cardiovascular Exam Present: RRR Progress Note: A&P (1) Spontaneous pneumothorax Status: Acute Assessment and plan: No sign of recurrent pneumothorax status post chest tube removal yesterday Discharge home with close outpatient follow-up Current Visit: No
--- NOTE | 2019-03-17 06:51 | HMH.DCSUM ---
General - General Admission date:: 03/11/19 Discharge date: 03/17/19 HPI HPI: Patient is a 33-year-old white male who had presented to the emergency department on 03/02/2019 with a 2-week history of respiratory complaints. He had allegedly been seen in the emergency department in [place] with a negative work-up. When he presented here he was found to have a large right pneumothorax. Surgery was consulted and he underwent placement of right chest tube in the emergency department. This resulted in essentially immediate full expansion of the right lung. He had quick resolution of air leak and the following day his chest tube was placed on waterseal. Serial x-rays revealed no evidence of any recurrent pneumothorax and he had no air leak. Therefore his chest tube was removed without incident in the manager foreign hours of 03/04/2019. Patient was observed throughout that day and later that afternoon he underwent follow-up chest x-ray which revealed no evidence of any pneumothorax. Patient was therefore discharged home in the afternoon of 03/04/2019. He was scheduled to follow-up in the office today for chest tube site suture removal and incision inspection. When he presented to the office he was doing well. Denied any shortness of breath or chest pain. Interestingly, he stated that he had some bubbling sensation the day after discharge. This then resolved. Upon further questioning he states that he had some right-sided back pain which he attributed to work. He therefore underwent chest x-ray. This reveals appreciable right-sided pneumothorax measuring, according to the radiology report, 25%. Plan was made for admission for management of recurrent pneumothorax with possible chest tube placement. Hospital Course Hospital Course: The patient convalesced well showing good signs of resolution of his pneumothorax with chest tube placement. Follow-up revealed resolution of air leak and continued resolution of pneumothorax. On 03/16/2019 his chest tube was removed. He remained afebrile with stable normal vital signs and showed no signs of respiratory distress. On the morning of 03/17/2019 he was deemed appropriate for discharge. Repeat chest film on the morning of discharge revealed no sign of recurrent pneumothorax. Objective Vital signs: Temp Pulse Resp BP Pulse Ox 97.8 F 55 L 16 112/55 L 97 03/17/19 04:00 03/17/19 04:00 03/17/19 04:00 03/17/19 04:00 03/17/19 04:00 no acute distress - *Routine HEENT Exam Head: Present: normocephalic, atraumatic - *Routine Neck Exam Present: full ROM - Routine Chest/Breast/Axilla Exam Comments: dressing intact - *Routine Respiratory Exam Present: CTA bilaterally. Absent: respiratory distress - *Routine Cardiovascular Exam Present: RRR - *Routine Abdominal Exam Present: soft - *Routine Extremities Exam Present: full ROM. Absent: cyanosis, clubbing, edema - Routine Back/Spine/Pelvis Exam Back/Spine: Present: full ROM - *Routine Skin Exam Present: intact - *Routine Neurological Exam Present: alert, oriented X3 - Routine Psychiatric Exam Present: normal affect DS: Diagnosis - Discharge Diagnosis (1) Spontaneous pneumothorax Status: Acute Problem details: Complicated/recurrent spontaneous pneumothorax requiring repeat chest tube placement. Discharge Plan - Patient Discharge Instructions ACTIVITY: Continue current activity DIET: advance to your usual diet Patient Instructions: DI for Pneumothorax - Follow up Plan Follow up with: Florentin Jay MD [Staff Physician] - 03/25/19 Disposition: Home, Self-[facility] Medications: Home Medications Medication Instructions Recorded Confirmed Type Buprenorphine HCl/Naloxone HCl 2 film SL DAILY 03/02/19 03/11/19 History [Suboxone 8 mg-2 mg Sl Film] Prescriptions/Medication Reconciliation: Continued Buprenorphine HCl/Naloxone HCl [Suboxone 8 mg-2 mg Sl Film] 2 film SL [place]
--- NOTE | 2019-03-17 07:20 | PC.NURSE ---
REPORT GIVEN TO Lina JAMES
[2019-03-17 07:59] VITALS: BP 124/70; PULSE 60; RESP 17; TEMP 36.8; O2SAT 99
== END 2019-03-17 08:30 | disposition home or self-care (01) | DRG 201 ==
PROVIDERS: Admitting Provider Surgery; Visit Provider Surgery
DX: J93.83 Other pneumothorax (principal); Z72.0 Tobacco use
CPT/HCPCS: 32551; 71045; 71046; 94760; 99152; 99153

== ENCOUNTER → 2019-03-25 12:23 | Outpatient (CLI) | payer MEDICAID, SELFPAY ==
--- NOTE | 2019-03-25 12:31 | XR_ITS ---
XR chest 2V HISTORY: Post recent chest tube removal ITS.REASON: pneumothorax ORDERING PHYSICIAN: Floerntin Jay MD PATIENT AGE: 34 years COMPARISON: PA and lateral chest 03/17/2019 FINDINGS: The cardiomediastinal silhouette and pulmonary vascularity are within normal limits. The lungs are clear without infiltrates, suspicious nodules, or pleural effusions. No acute bony abnormalities. There is no pneumothorax visible. IMPRESSION: Negative chest, no acute finding
== END ==
PROVIDERS: Visit Provider Surgery
DX: J93.83 Other pneumothorax (principal)
CPT/HCPCS: 71046

== ENCOUNTER 2021-11-01 20:37 | Emergency (ER) | payer MEDICAID, SELFPAY ==
[2021-11-01 21:06] VITALS: BP 124/67; PULSE 68; RESP 18; TEMP 37.6; O2SAT 97; BMI 27.5
--- NOTE | 2021-11-01 21:15 | HMH.EDUTC ---
[facility] [place] Disposition Clinical Impression: Viral syndrome, Exposure to COVID-19 virus Disposition: Home, Self-Care Condition on Discharge: Good Instructions: Preventing the Spread of Coronavirus Discharge Instructions, DI for COVID-19 (Suspected or Confirmed ) Additional Instructions: Drink plenty of fluids. Take tylenol or ibuprofen for pain or fever. Take the medications as directed. Follow up with your regular doctor. GO TO THE ER FOR ANY WORSENING SYMPTOMS Quarantine until you know the results of your covid-19 test. If it is positive, the health department should call you and give you further instructions about your length of Quarantine and other things. Notify your school or workplace of your results and follow their instructions regarding return to work/school. Prescriptions: Brompheniramine/Pseudoephed/Dm [Bromfed Dm Cough Syrup] 5 ml PO Q6HP PRN #240 ml PRN Reason: Cough Transmission Status: Pending to [facility] Ondansetron [Zofran 4mg ODT] 4 mg PO Q8HP PRN #20 tab PRN Reason: Nausea Transmission Status: Pending to [facility] Referrals: Karina Mario [Primary Care Provider] - Forms: Work/School Release Time of Disposition: 21:33 Medical Decision Making - Medical Records Medical records reviewed: No: I reviewed the patient's medical records. - George Inquiry Pt receiving controlled substance: No Vital Signs: 11/01/21 21:06 11/01/21 21:21 Temperature 99.6 F 99.6 F Temperature Source Oral Pulse Rate 68 Pulse Rate [Left] 68 Respiratory Rate 18 18 Blood Pressure 124/67 Blood Pressure [Right Arm] 124/67 Blood Pressure Mean [Right Arm] 86 02 Sat by Pulse Oximetry 97 - Lab Data Lab results reviewed: Yes: I reviewed the patient's lab results. Lab Results 11/01/21 21:20: Strep Scn Rapid Clinic Negative Orders (Tests/Meds): ORDERS Category Date Time Status Covid-19 Nasal PCR ([facility]) Routine Lab 11/01/21 21:20 Ordered Strep Screen Confirmation Stat Micro 11/01/21 21:20 Received [facility] [place] HPI - General Stated complaint: covid test Time Seen by Provider: 11/01/21 21:15 Mode of Arrival: Ambulatory Source of Information: Patient Limitations: No Limitations Description of Symptoms (Recalled from Triage Doc. by RN): pt c/o a MACIEL and cough. pt was exposed to covid yesterday. HEENT Symptoms (Recalled from RN notes): Yes Resp Symptoms (Recalled from RN notes): Yes Skin Symptoms (Recalled from RN notes): No MS Symptoms (Recalled from RN notes): No Functional Status (Recalled from RN notes): wnl - History of Present Illness Provider Complaint: He states that he has had a scratchy sore throat, low grade fever, chills and he has felt bad since yesterday. He doesn't know of any exposure to covid-19, but there has been several people sick at his job. - Related Data Home Medications Medication Instructions Recorded Confirmed Buprenorphine HCl/Naloxone HCl 2 film SL DAILY 03/02/19 03/25/19 [Suboxone 8 mg-2 mg Sl Film] Previous Rx's Medication Instructions Recorded Brompheniramine/Pseudoephed/Dm 5 ml PO Q6HP PRN #240 ml 11/01/21 [Bromfed Dm Cough Syrup] Ondansetron [Zofran 4mg ODT] 4 mg PO Q8HP PRN #20 tab 11/01/21 Allergies Allergy/AdvReac Type Severity Reaction Status Date / Time codeine [CODEINE] Allergy Intermediate NA-NAUSEA Verified 03/25/19 14:16 tramadol [TRAMADOL] Allergy Intermediate NA-NAUSEA Verified 03/25/19 14:16 - Worker's Comp Is this a Worker's Comp case?: No [facility] History - Hepatitis A Screen Drug use history?: No High risk sexual behaviors?: No History of sexually transmitted infection?: No Currently employed?: No Childcare worker?: No Do you have indoor plumbing?: Yes Do you have electricity?: Yes Attestation statement:: This patient has been screened for Hepatitis A risk factors. I have reviewed the patient's past medical history: Yes Medical History: Reports:: MRSA
[2021-11-01 21:21] VITALS: BP 124/67; PULSE 68; RESP 18; TEMP 37.6
[2021-11-01 21:27] LABS: UTC Strep Screen (Rapid) Negative (Negative)
== END 2021-11-01 21:35 | disposition home or self-care (01) ==
PROVIDERS: Emergency Provider Nurse Practitioner Family; PCP Nurse Practitioner Family
DX: B34.9 Viral infection, unspecified (principal); Z20.822 Contact with and (suspected) exposure to COVID-19; R50.9 Fever, unspecified; Z88.5 Allergy status to narcotic agent
CPT/HCPCS: 87880; 99203; C9803; G0463; U0003; U0005

== ENCOUNTER → 2022-02-17 15:05 | Outpatient (CLI) | payer MEDICAID, SELFPAY ==
--- NOTE | 2022-02-17 15:08 | MR_ITS ---
FINAL REPORT CLINICAL HISTORY: LATERAL EPLCONDYLITIS, LT ELBOW. LATERAL EPICONDYLE PAIN X10YRS. PAIN IS SO BAD AT TIMES UNABLE TO BEND ARM. NO RECENT INJURY OR TRAUMA. FINDINGS: Multiplanar MR imaging of the left elbow was performed without contrast. The bony structures are intact without evidence of fracture, bone bruise or marrow edema. There is no evidence of osteochondral lesion. There is a sprain or partial tear of the lateral collateral ligament. There is a high-grade partial tear of the origin of the common extensor tendon. The common flexor tendon is intact. The biceps tendon is intact. The distal triceps tendon is intact. The brachialis tendon is intact. The musculature has an unremarkable appearance. No soft tissue mass or cyst is identified. There is a small joint effusion. No focal abnormality is identified of the ulnar nerve. IMPRESSION: Partial tear of the origin of the common extensor tendon. Sprain or partial tear of the lateral collateral ligament. Reviewed, Interpreted and Dictated by Florentin Malone III, MD Transcribed by Evangelina Villanueva Authenticated by Florentin Malone III, MD on 02/17/2022 05:21:01 PM [facility]
== END ==
PROVIDERS: PCP Nurse Practitioner Family; Visit Provider Orthopaedic Surgery Adult Reconstructive Orthopaedic Surgery
DX: M77.12 Lateral epicondylitis, left elbow (principal)
CPT/HCPCS: 73221

== ENCOUNTER 2022-05-06 13:55 | Inpatient (IN) | payer MEDICAID, SELFPAY ==
[2022-05-06] VITALS (15 sets, daily range): BP systolic 115–144; BP diastolic 58–91; PULSE 48–91; RESP 16–22; TEMP 36.8–37; O2SAT 97–100; BMI 26.2; BMI 25.8
--- NOTE | 2022-05-06 13:48 | ECG_ITS ---
APPROVED REPORT Exam: Resting ECG HR:52 bpm ECG Measurements Heart Rate 52 AXES MO 137 P 76 QRSd 113 QRS 83 QT 431 T 57 QTc 412 Conclusion SINUS BRADYCARDIA MODERATE INTRAVENTRICULAR CONDUCTION DELAY [110+ ms QRS DURATION] BORDERLINE ECG UNCONFIRMED REPORT Electronically signed by : Michael Delacruz MD 05/07/2022 21:02:26
--- NOTE | 2022-05-06 14:00 | PC.NURSE ---
1400 WARM BLANKET PROVIDED. S.O AT BEDSIDE
--- NOTE | 2022-05-06 14:10 | CT_ITS ---
PROCEDURE INFORMATION: Exam: CT Abdomen And Pelvis With Contrast Exam date and time: 05/06/2022 4:40 PM Age: 37 years old Clinical indication: Abdominal pain; Generalized; Additional info: Abd pain. TECHNIQUE: Imaging protocol: Computed tomography of the abdomen and pelvis with contrast. Radiation optimization: All CT scans at this facility use at least one of these dose optimization techniques: automated exposure control; mA and/or kV adjustment per patient size (includes targeted exams where dose is matched to clinical indication); or iterative reconstruction. Contrast material: ISOVUE; Contrast volume: 75 ml; Contrast route: IV; COMPARISON: ABDPELW CT ABD PELVIS W/ CONTRAST 01/06/2017 9:34 PM FINDINGS: Pleural spaces: Small amount of pleural fluid on the right with loculated appearance peripherally and mild pleural thickening. Liver: Normal. No mass. Gallbladder and bile ducts: Normal. No calcified stones. No ductal dilation. Pancreas: Normal. No ductal dilation. Spleen: Splenic granulomas. Adrenal glands: Normal. No mass. Kidneys and ureters: Normal. No hydronephrosis. Stomach and bowel: No diverticulitis. No bowel obstruction or evidence of appendicitis. Appendix: Normal appendix. Intraperitoneal space: Unremarkable. No free air. No significant fluid collection. Vasculature: Unremarkable. No abdominal aortic aneurysm. Lymph nodes: Unremarkable. No enlarged lymph nodes. Urinary bladder: Unremarkable as visualized. Reproductive: Unremarkable as visualized. Bones/joints: Chronic L4 spondylolysis with mild grade 1 anterolisthesis. No acute fracture. Soft tissues: Unremarkable. Other findings: No other acute pathology seen. As above. IMPRESSION: 1. Small amount of pleural fluid on the right with loculated appearance peripherally and mild pleural thickening. 2. No diverticulitis. No bowel obstruction or evidence of appendicitis. 3. No other acute pathology seen. As above.
--- NOTE | 2022-05-06 14:10 | XR_ITS ---
FINAL REPORT CLINICAL HISTORY: LOWER ABD PAIN, chest pain radiating to left arm COMPARISON: March 17, 2019 FINDINGS: The heart size is normal. The mediastinum is normal. There is no focal infiltrate or edema. There is a new small right pleural effusion. There is no pneumothorax. There is no osseous abnormality. IMPRESSION: Small right pleural effusion, new. Reviewed, Interpreted and Dictated by Florentin Malone III, MD Transcribed by Jean-Paul Santa Authenticated and [facility]
--- NOTE | 2022-05-06 14:25 | PC.NURSE ---
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 RAD IS WAITING ON CT BUT DOING PORT CHEST NOW
[2022-05-06 14:30] LABS: Coronavirus 19, PCR Not Detected (NotDetected); Influenza A, PCR Not Detected (NotDetected); Influenza B, PCR Not Detected (NotDetected)
--- NOTE | 2022-05-06 14:33 | PC.NURSE ---
XR AT BEDSIDE
[2022-05-06 14:35] LABS: Basophils # 0.1 K/mm3 (0-0.2); Basophils % 0.3 % (0.1-2.0); Chloride 98 mmol/L (98-107); Eosinophils # 0.2 K/mm3 (0.0-0.4); Eosinophils % 0.6 % (0.1-12.0); Hematocrit 53.1 % (42.0-52.0); Lymphocytes # 1.9 K/mm3 (0.7-4.5); Lymphocytes % 6.7 % (10-50); Mean Corpuscular HGB Conc 34.7 g/dL (31.8-35.4); Mean Corpuscular Hemoglobin 30.7 pg (27.0-31.2); Mean Corpuscular Volume 88.3 fl (80-94); Mean Platelet Volume 7.6 fl (7.4-10.4); Monocytes # 1.7 K/mm3 (0.1-1.0); Monocytes % 5.7 % (1.7-9.3); Neutrophils # 25.2 K/mm3 (1.8-7.8); Neutrophils % 86.7 % (37.0-80.0); Platelet Count 262 K/mm3 (142-424); Red Blood Count 6.02 M/mm3 (4.60-6.20); Red Cell Distribution Width 12.4 % (11.5-17.5); Sodium 139 mmol/L (136-145); White Blood Count 29.1 K/mm3 (4.8-10.8)
[2022-05-06 14:36] LABS: Potassium 3.5 mmoL/L (3.5-5.1)
[2022-05-06 14:38] LABS: Alanine Aminotransferase 31 U/L (12-78); Alkaline Phosphatase 112 U/L (38-126); Amylase 72 U/L (30-110); Anion Gap 17.5 mEq/L (5-15); Aspartate Amino Transferase 38 U/L (17-59); Bilirubin,Total 2.3 mg/dl (0.2-1.3); Blood Urea Nitrogen 14 mg/dl (9-20); Carbon Dioxide 27 mmol/L (22.0-30.0); Creatinine Clearance Estimated 195 mL/min (50-200); Estimated Glomerular Filt Rate 127 ml/min (>60); GFR (African American) 154 ML/MIN (>60); Glucose 122 mg/dl (74-100); Lipase 21 U/L (23-300)
[2022-05-06 14:39] LABS: Albumin Level 5.7 g/dl (3.5-5.0); Albumin/Globulin Ratio 1.3 (1.1-1.8); Globulin 4.3 g/dL (1.3-3.2)
--- NOTE | 2022-05-06 14:45 | PC.NURSE ---
Rounded on patient; pt is resting at this time. Hooked him back to monitor and he reports he would just like the light off at this time. pts friend at BS and she denies any needs. ER MD is working his way to see the patient. Will check on patient again shortly.
[2022-05-06 14:46] LABS: MANUAL DIFFERENTIAL MANUAL DIFFERENTIAL (MANUAL DIFF)
[2022-05-06 14:52] LABS: Hemoglobin 18.6 g/dL (14.1-18.0); Troponin I < 0.01 ng/ml (0.00-0.034)
--- NOTE | 2022-05-06 15:14 | PC.NURSE ---
DR SALDANA AT BEDSIDE FOR EVALUATION
--- NOTE | 2022-05-06 15:16 | HMH.EDGENADL ---
ED Disposition Clinical Impression: Pleural effusion, SIRS (systemic inflammatory response syndrome) Leukocytosis Qualifiers: Leukocytosis type: unspecified Qualified Code(s): D72.829 - Elevated white blood cell count, unspecified Chest pain Qualifiers: Chest pain type: chest pain on breathing Qualified Code(s): R07.1 - Chest pain on breathing Abdominal pain Qualifiers: Abdominal location: generalized Qualified Code(s): R10.84 - Generalized abdominal pain Back pain Qualifiers: Back pain location: back pain in unspecified location Chronicity: acute Back pain laterality: bilateral Qualified Code(s): M54.9 - Dorsalgia, unspecified Vomiting Qualifiers: Vomiting type: unspecified Nausea presence: with nausea Qualified Code(s): R11.2 - Nausea with vomiting, unspecified Disposition: Admitted as Observation Condition on Discharge: Fair Referrals: Provider,Referral, MD [Primary Care Provider] - - Critical Care Critical Care Time: No Attestation: On 05/06/22, the high probability of a clinically significant, sudden or life threatening deterioration of the following system(s) required my full and direct attention, intervention and personal management. The time I documented below is in addition to time spent performing reported procedures but includes the following listed in this critical care notation. Medical Decision Making - George Inquiry Pt receiving controlled substance: Yes George was queried for this patient: Yes Risks and benefits of using a controlled substance: were not discussed with pt by me Vital Signs: 05/06/22 13:55 05/06/22 14:38 05/06/22 15:00 Temperature 98.2 F Temperature Source Oral Pulse Rate 66 57 L Pulse Rate [Brachial] 60 Respiratory Rate 22 18 Blood Pressure 119/69 132/80 Blood Pressure [Right Arm] 144/77 H Blood Pressure Mean 88 94 Blood Pressure Mean [Right Arm] 99 Blood Pressure Source [Right Arm] Automatic Cuff Blood Pressure Position [Right Arm] Sitting 02 Sat by Pulse Oximetry 100 99 99 Oxygen Delivery Method Room Air 05/06/22 15:30 05/06/22 16:00 05/06/22 16:30 Temperature Temperature Source Pulse Rate 52 L 48 L Pulse Rate [Brachial] Respiratory Rate 18 18 Blood Pressure 142/77 H 132/74 132/77 Blood Pressure [Right Arm] Blood Pressure Mean 89 93 90 Blood Pressure Mean [Right Arm] Blood Pressure Source [Right Arm] Blood Pressure Position [Right Arm] 02 Sat by Pulse Oximetry 99 98 97 Oxygen Delivery Method Room Air 05/06/22 17:01 05/06/22 17:30 05/06/22 19:36 Temperature Temperature Source Pulse Rate 58 L 62 64 Pulse Rate [Brachial] Respiratory Rate 18 18 18 Blood Pressure 115/91 H 132/68 126/69 Blood Pressure [Right Arm] Blood Pressure Mean 97 89 95 Blood Pressure Mean [Right Arm] Blood Pressure Source [Right Arm] Blood Pressure Position [Right Arm] 02 Sat by Pulse Oximetry 98 99 99 Oxygen Delivery Method - Lab Data Lab Results 05/06/22 14:15: WBC 29.1 H*, RBC 6.02, Hgb 18.6 H, Hct 53.1 H, MCV 88.3, MCH 30.7, MCHC 34.7, RDW 12.4, Plt Count 262, MPV 7.6, Neut % (Auto) 86.7 H, Lymph % (Auto) 6.7 L, [place] % (Auto) 5.7, Eos % (Auto) 0.6, Baso % (Auto) 0.3, Neut # (Auto) 25.2 H, Lymph # (Auto) 1.9, [place] # (Auto) 1.7 H, Eos # (Auto) 0.2, Baso # (Auto) 0.1, Total Counted 100, Neutrophils % (Manual) 87 H, Lymphocytes % (Manual) 11, Monocytes % (Manual) 2, Platelet Estimate Normal, RBC Morphology Normal 05/06/22 14:15: Sodium 139, Potassium 3.5, Chloride 98, Carbon Dioxide 27, Anion Gap 17.5 H, BUN 14, Creatinine 0.70, Estimated Creat Clear 195, Estimated GFR 127, Est GFR ( Amer) 154, Glucose 122 H, Calcium 11.0 H, Total Bilirubin 2.3 H, AST 38, ALT 31, Alkaline Phosphatase 112, Troponin I < 0.01, Total Protein 10.0 H, Albumin 5.7 H, Globulin 4.3 H, Albumin/Globulin Ratio 1.3, Amylase 72, Lipase 21 L 05/06/22 14:15: SARS-CoV-2 (PCR) Not detected, Influenza A Untype (PCR) Not detected, Influen
--- NOTE | 2022-05-06 15:24 | PC.NURSE ---
PT difficult stick and there had been multiple attempts made but veins were blowing. Went in with US and explained to pt and SO that I was going to look for a vein with the US machine. Pt agreeable. Attempted IV in the left AC and vein blew when attempting to flush. Moved to right side and was able to establish a 20G in the right upper arm area. Site was flushed and there was no bubbling and pt advised it felt fine. Was unable to obtain the rest of pt's blood work. Line was secured at this time and notified lab we would need the rest of the blood drawn.
[2022-05-06 15:25] LABS: C-Reactive Protein 75.5 mg/L (0-4); Lymphocytes % 11 % (10-50); Monocytes % 2 % (2-9); Neutrophils % 87 % (42-76); Platelet Estimate Normal; RBC Morphology Normal; Total Cells Counted 100
--- NOTE | 2022-05-06 15:29 | PC.NURSE ---
LAB HERE FOR ADDITIONAL BLOOD
--- NOTE | 2022-05-06 15:36 | PC.NURSE ---
LAB AT BEDSIDE TO COLLECT SPECIMENS
[2022-05-06 15:40] LABS: Procalcitonin 0.078 ng/mL (0.0-2.0)
[2022-05-06 15:41] LABS: Erythrocyte Sedimentation Rate 1 mm/hr (0-15)
--- NOTE | 2022-05-06 15:47 | PC.NURSE ---
FAMILY CAME TO NURSES STATION STATING THAT PT ARM WHERE HIS IV WAS. WENT TO ROOM IS FURTHER ASSESS, PT ARM WAS SWOLLEN AND PT WAS STATING THAT IT WAS HURTING. IV FLUIDS STOPPED, IV REMOVED AND WRAPPED WITH COBAND. MD AWARE, WILL TRY TO ATTEMPT ANOTHER IV SITE.
--- NOTE | 2022-05-06 16:07 | PC.NURSE ---
Eladio RAO RN AT BEDSIDE TO ATTEMPT IV ACCESS
[2022-05-06 16:19] LABS: Lactic Acid 1.8 mmol/L (0.7-2.1)
--- NOTE | 2022-05-06 16:21 | PC.NURSE ---
LUKE WAS SUCCESSFUL WITH US IV 20G L UPPER ARM
--- NOTE | 2022-05-06 16:37 | PC.NURSE ---
RAD NOTIFIED THAT PT WAS READY FOR HIS CT
--- NOTE | 2022-05-06 16:49 | PC.NURSE ---
pt to radiology via wc with poultry field service technician
--- NOTE | 2022-05-06 16:58 | PC.NURSE ---
PT RETURNED FROM CT, INFORMED PT THAT URINE SPECIMEN IS NEEDED. URINAL PROVIDED
--- NOTE | 2022-05-06 17:01 | PC.NURSE ---
UA COLLECTED AND SENT TO LAB
[2022-05-06 17:06] LABS: Microscopic, Urine URINE MICROSCOPIC (MICROSCOPIC)
[2022-05-06 17:22] LABS: Appearance,Urine CLEAR (Clear); Blood, Urine 1+ (Negative); Color,Urine AMBER (Yellow); Glucose,Urine (UA) Negative (Negative); Ketones,Urine 2+ (Negative); Leukocyte Esterase,Urine TRACE (Negative); Nitrate,Urine POSITIVE (Negative); Protein,Urine 2+ (Negative); Specific Gravity, Urine >= 1.030 (1.005-1.030); Urobilinogen,Urine 0.2 EU/dl (0.2)
[2022-05-06 17:32] LABS: Bilirubin,Urine 1+ (Negative)
--- NOTE | 2022-05-06 17:45 | CT_ITS ---
PROCEDURE INFORMATION: Exam: CTA Chest With Contrast Exam date and time: 05/06/2022 6:00 PM Age: 37 years old Clinical indication: Sternal or substernal pain; Additional info: Chest pain TECHNIQUE: Imaging protocol: Computed tomographic angiography of the chest with contrast. 3D rendering (Not supervised by radiologist): MIP and/or 3D reconstructed images were created by the technologist. Radiation optimization: All CT scans at this facility use at least one of these dose optimization techniques: automated exposure control; mA and/or kV adjustment per patient size (includes targeted exams where dose is matched to clinical indication); or iterative reconstruction. Contrast material: ISOVUE 370; Contrast volume: 60 ml; Contrast route: INTRAVENOUS (IV); COMPARISON: [facility] CT CHEST W/ CONTRAST 01/06/2017 9:34 PM FINDINGS: Pulmonary arteries: No pulmonary embolus. No dissection or aneurysm in the chest. Aorta: Unremarkable. No aortic aneurysm. No aortic dissection. Lungs: No consolidation or pulmonary edema. Paraseptal emphysematous change in the lung apices. No pneumothorax. Pleural spaces: Small right pleural effusion with some loculated components laterally and mild pleural thickening. Atelectasis. Heart: Unremarkable. No cardiomegaly. No pericardial effusion. Lymph nodes: Unremarkable. No enlarged lymph nodes. Bones/joints: No acute fracture. Soft tissues: Unremarkable. IMPRESSION: 1. No pulmonary embolus. No dissection or aneurysm in the chest. 2. Small right pleural effusion with some loculated components laterally and mild pleural thickening. Atelectasis. 3. No consolidation or pulmonary edema. 4. Paraseptal emphysematous change in the lung apices. No pneumothorax.
--- NOTE | 2022-05-06 17:49 | CT_ITS ---
PROCEDURE INFORMATION: Exam: CT Lumbar Spine With Contrast Exam date and time: 05/06/2022 6:05 PM Age: 37 years old Clinical indication: Low back pain; Additional info: Pain, leukocytosis TECHNIQUE: Imaging protocol: Computed tomography of the lumbar spine with contrast. Radiation optimization: All CT scans at this facility use at least one of these dose optimization techniques: automated exposure control; mA and/or kV adjustment per patient size (includes targeted exams where dose is matched to clinical indication); or iterative reconstruction. Contrast material: ISOVUE; Contrast volume: 60 ml; Contrast route: IV; COMPARISON: CT ABDOMEN PELVIS W CON 05/06/2022 4:40 PM FINDINGS: Bones/joints: Chronic L4 spondylolysis with limited grade 1 anterolisthesis. No acute fracture or suspicious focal bony lesion. Discs/Spinal canal/Neural foramina: moderate facet arthropathy. Loss of disc space height L4-L5. No CT evidence of critical stenosis. Soft tissues: Unremarkable. IMPRESSION: Chronic L4 spondylolysis with limited grade 1 anterolisthesis. No acute fracture or suspicious focal bony lesion.
--- NOTE | 2022-05-06 17:49 | CT_ITS ---
PROCEDURE INFORMATION: Exam: CT Thoracic Spine With Contrast Exam date and time: 05/06/2022 6:05 PM Age: 37 years old Clinical indication: Pain in thoracic spine; Additional info: Pain, leukocytosis TECHNIQUE: Imaging protocol: Computed tomography of the thoracic spine with contrast. Radiation optimization: All CT scans at this facility use at least one of these dose optimization techniques: automated exposure control; mA and/or kV adjustment per patient size (includes targeted exams where dose is matched to clinical indication); or iterative reconstruction. Contrast material: ISOVUE; Contrast volume: 60 ml; Contrast route: IV; COMPARISON: CT ABDOMEN PELVIS W CON 05/06/2022 4:40 PM FINDINGS: Bones/joints: Other than limited degenerative change, unremarkable thoracic spine. Discs/Spinal canal/Neural foramina: No significant disc protrusion. No severe spinal canal stenosis. No significant neural foraminal narrowing. Soft tissues: Unremarkable. Pleural spaces: Small right pleural effusion again evident. IMPRESSION: Other than limited degenerative change, unremarkable thoracic spine.
--- NOTE | 2022-05-06 17:49 | PC.NURSE ---
ED MD AT BEDSIDE TO REEVALUATE PT
[2022-05-06 17:52] LABS: Bacteria,Urine 3+ /lpf
--- NOTE | 2022-05-06 18:05 | PC.NURSE ---
PT TO CT
[2022-05-06 18:22] LABS: Amphetamine/Metha Screen,Urine Negative ng/ml (<1000)
[2022-05-06 18:23] LABS: Barbiturates Screen,Urine Negative ng/ml (<200)
[2022-05-06 18:24] LABS: Benzodiazepines Screen,Urine Negative ng/ml (<200); Cannabinoid Screen,Urine Positive ng/ml (<50)
[2022-05-06 18:25] LABS: Cocaine Screen,Urine Negative ng/ml (<300)
--- NOTE | 2022-05-06 18:25 | PC.NURSE ---
PT BACK FROM CT FAMILY AT
[2022-05-06 18:26] LABS: Methadone Screen,Urine Negative ng/ml (<300); Opiate Screen,Urine Positive ng/ml (<300)
[2022-05-06 18:27] LABS: Phencyclidine Screen,Urine Negative ng/ml (<25)
--- NOTE | 2022-05-06 18:32 | PC.NURSE ---
lab called asking if we needed the second troponin on pt. states yes, lab wanted to know if we can grab those, due to pt being a hard stick recommended they come straight stick pt. LAb states it will be a little bit before they can get down here.
--- NOTE | 2022-05-06 19:32 | PC.NURSE ---
paged dr escalante @ this time
--- NOTE | 2022-05-06 19:39 | PC.NURSE ---
Patient medication list reviewed with patient. Patient is resting in bed. Requested a urinal.
--- NOTE | 2022-05-06 20:03 | PC.NURSE ---
PT AND FAMILY MADE AWARE OF PT TO BE ON REGULAR DIET. PT REPORTS PAIN 03/28. MEDICATIONS GIVEN ORDERED. PT AWARE OF PLAN TO ADMIT. IV SITE FLUSHED. NO S/S OF INFILTRATION PRESENT. WCM.
--- NOTE | 2022-05-06 20:07 | PC.NURSE ---
LAB CALLED TO INFORM THAT 0 TROP WAS HEMOLYZED AND WOULD NEED TO BE RECOLLECTED. LABS OBTAINED - TECH STATES THEY WILL ADJUST TROP. TIMES APPROPRIATELY.
[2022-05-06 20:33] LABS: Troponin I < 0.01 ng/ml (0.00-0.034)
--- NOTE | 2022-05-06 21:12 | PC.NURSE ---
PT UPDATED WITH EXPECTED WAIT TIMES AND MADE AWARE THAT HE WOULD BE GETTING A ROOM ON THE FLOOR.
[2022-05-07] VITALS (8 sets, daily range): BP systolic 108–140; BP diastolic 64–88; PULSE 60–101; RESP 16–20; TEMP 36.4–37; O2SAT 96–100; BMI 25.8
--- NOTE | 2022-05-07 06:18 | PC.NURSE ---
Pt has rested well since admission. Remains afebrile. VSS. Has c/o pain a few times, medicated per mar with prn medications. LS cta. Denies any significant chest pain at this time. Pt ambulating to the bathroom without difficulty. S/O remains at at bedside. Will continue to monitor.
--- NOTE | 2022-05-07 07:00 | CA_ITS ---
APPROVED REPORT EXAM: Comprehensive 2D, Doppler, and color-flow Echocardiogram Childcare [facility] Director: RAFFI Zhang, RVS Ht: 6 ft 3 in Wt: 210lbs BSA: 2.24 BP: 132/80 mmHg Indications: R/O endocarditis, pleural effusion, CP with breathing, Smoker Echo Enhancing Agent Comments: Bright pericardium with low parasternal windows 2D Dimensions IVSd 1.02 cm LVEF (Visual) 64.80 % PWd 0.91 cm LA Volume 62.40 mL LVDd 5.15 cm LA Volume Index 27.621972 mL/m2 (M/F) 16-34 LVDs 3.31 cm Aortic Root 3.20 cm Left Atrium 4.12 cm LVOT 2.32 cm (M/F) 1.5-2.5 M-Mode Dimensions EPSs 0.51 cm TAPSE 3.14 (<1.7) LV Diastology E Decel Time 223.00 (160-240 msec) E/A Ratio 1.75 MED E' 9.30 (< 7 cm/sec) MED A' 10.00 cm/s E'/MED E' Ratio 13.32 (>14) LAT E' 12.80 (<10 cm/sec) LAT A' 4.60 cm/s E/LAT E' Ratio 9.68 (>14) Aortic Valve LVOT Max 131.00 (70-110 cm/s) LVOT VTI 27.81 cm AoV Peak Albert. 153.00 (50-130 cm/s) AO Peak GR. 9.30 mmHg AO Mean GR. 5.30 (<5 mmHg) AO VTI 35.94 (18-25 cm) MIGUEL (VTI) 3.27 (2.5-4.5 cm2) Mitral Valve MV A Velocity 71.00 (40-130 cm/s) E/A Ratio 1.75 MV Decel. Time 223.00 (160-240 ms) Pulmonary Valve PV Peak Velocity 69.00 (50-150 cm/s) Tricuspid Valve TR P. Velocity 159.00 cm/s RAP Estimate 10.00 mmHg RVSP 20.10 mmHg Left Ventricle Left atrium is normal size, left ventricle is normal size, there is no concentric left ventricular hypertrophy, estimated ejection fraction 55% with no regional wall motion abnormality, diastolic parameters are within normal range. Right Ventricle Right atrium and right ventricle are normal size and contractility. Aortic Valve Aortic valve is grossly normal, there is no aortic stenosis or aortic insufficiency. Mitral Valve Mitral valve grossly normal, there is trace mitral regurgitation. Tricuspid Valve Tricuspid valve grossly normal, there is trace tricuspid regurgitation, tricuspid regurgitation jet velocity is inadequate for calculation of the right ventricular systolic pressure. Pulmonic Valve Pulmonic valve is poorly visualized. Great Vessels Aortic root is normal size. Inferior vena cava is mildly dilated with normal inspiratory collapse. Pericardium No significant pericardial effusion noted. Conclusion 1. Normal left ventricular size preserved left ventricular systolic function, estimated ejection fraction 55% with no regional wall motion abnormality, diastolic parameters are within normal range. 2. Trace mitral and tricuspid regurgitation. 3. No significant pericardial effusion noted. 4. Inferior vena cava is mildly dilated with normal inspiratory collapse. Electronically signed by : João Gerard MD 05/08/2022 06:01:46
--- NOTE | 2022-05-07 07:35 | HMH.PHAINT ---
MEDICATION RECONCILIATION COMPLETED ON PATIENT USING EXTERNAL FILL HISTORY FROM PHARMACY AND JERICA REPORT. -CALVIN MCCLURED
--- NOTE | 2022-05-07 07:36 | HMH.PHAVTE ---
[facility] Pharmacy VTE Monitoring - Patient Demographics Admission date: 05/06/22 Report Date: 05/07/22 Time: 07:36 Allergies/Adverse Reactions: Patient Allergies codeine [CODEINE] Allergy (Intermediate, Verified 05/06/22 22:33) NA-NAUSEA tramadol [TRAMADOL] Allergy (Intermediate, Verified 05/06/22 22:33) NA-NAUSEA Height: 1.91 m Weight: 94.2 kg Patient Problems: Current Active Problems Leukocytosis (Acute) Chest pain (Acute) Pleural effusion (Acute) Abdominal pain (Acute) Back pain (Acute) Vomiting (Acute) SIRS (systemic inflammatory response syndrome) (Acute) - VTE Risk Labs: VTE Related Lab Results Hgb 18.6 g/dL (14.1-18.0) H 05/06/22 14:15 Hct 53.1 % (42.0-52.0) H 05/06/22 14:15 Plt Count 262 K/mm3 (142-424) 05/06/22 14:15 BUN 14 mg/dl (9-20) 05/06/22 14:15 Creatinine 0.70 mg/dl (0.66-1.25) 05/06/22 14:15 Estimated Creat Clear 195 mL/min (50-200) 05/06/22 14:15 Was VTE Risk Assessment Performed: Yes VTE Score: 1 VTE Risk Level: Very Low Risk - Prophylaxis VTE Prophylaxis Ordered?: Yes Types of VTE Prophylaxis: TEDS Knee High Location of Applied Device: Bilateral Lower Extremeties
--- NOTE | 2022-05-07 08:08 | HMH.HP ---
*Admission Date: 05/06/22 *Chief complaint: Chest and abdominal pain; nausea and vomiting. *History of present illness: Comment/Response: Agrees to admit the patient to the hospital. We discussed the patient's clinical information, including history, exam, laboratory and radiology results and ED course. Per hospital procedure, I will write temporary bridge inpatient orders on the patient. Specific orders requested by the admitting physician: Vancomycin and Zosyn. Transthoracic echocardiogram tomorrow. Toradol for pain. - Reevaluation(s) Time: 17:30 Reevaluation #1: States he hurts mostly across his anterior chest and across his mid thoracic back and to a lesser extent in his lower back. CT scan abdomen pelvis was unremarkable, CT chest, thoracic and lumbar spine ordered. Patient is a 37-year-old who presented to [facility] after 2 days of chest and abdominal and back pain as well as nausea and vomiting. He states it started 2 days ago and has progressively worsened.He describes the pain as lower diffuse chest discomfort. He also has experienced abdominal pain through to his back. He started vomiting and was unable to retain any food or fluids yesterday and was not able to take his medicines.Patient is a known previous drug user and is on Suboxone daily. He also has a history of previous pneumothorax on the right. With evaluation in the emergency room right blood cell count was 29,100. Chemistry showed normal electrolytes with a BUN of 14 and creatinine 0.7. Lactate was normal at 1.8. Labs to patient had multiple CT scans in the emergency roomInclude thoracic spine which showed limited degenerative changes;CT of the lumbar spine which revealed revealed chronic L4 spondylosisCT of the chest which showed no pulmonary embolism no dissection or aneurysm in the chest slight right right pleural effusion and mild pleural thickening and atelectasis no consolidation or pulmonary edema and paraseptal emphysematous changes in the lung apices no pneumothorax; CT of the abdomen/pelvis With small amount of pleural fluid on the right with loculated appearance Diverticulitis since . No bowel obstruction or evidence of appendicitis no other acute pathology seen.Arrival to the emergency room patient was afebrile Started on hypersaline and vancomycin was given ketorolac for painAs well as hydromorphone and Zofran he also received IV bolus fluids. Since admission patient has received additional pain medicine and at present describes his abdomen and chest has been sore. Denies shortness of breath. Echocardiogram has just been completed [facility] History Medical History: Reports:: Palpitations Denies:: Cancer, Diabetes Mellitus Type 1, Diabetes Mellitus Type 2, MRSA *Have you ever received a pneumonia vaccine?: No *Have you received a flu vaccine this season?: No Other Surgeries: Yes: Other Amputation: No Fractures: No - *Social History Last grade of school completed: High school graduate Smoking Status: Current every day smoker Tobacco Type: cigarettes # Packs/Day (cigarettes): 1 Alcohol Intake: never Substance Use Type: marijuana, opiates, IV drugs Last Used Substance: unknown *Occupational Status:: employed Housing: house Household Members: significant other *Travel in the last 8 weeks: None Family Hx:: Coronary Artery Disease, Diabetes, Heart Attack, Hypertension Meds Home Medications Medication Instructions Recorded Confirmed Type Gabapentin 300 mg PO TID 05/06/22 05/07/22 History Meloxicam 15 mg PO DAILY 05/06/22 05/06/22 History Buprenorphine HCl/Naloxone HCl 2 each SL DAILY 05/07/22 05/07/22 History [Buprenorphin-Naloxon 8-2 mg Sl] Cyclobenzaprine HCl 10 mg PO TIDP PRN 05/07/22 05/07/22 History [Cyclobenzaprine 10mg Tab*] Allergies Allergy/AdvReac Type Severity Reaction Status Date / Time codeine [CODEINE] Allergy Intermediate NA-NAUSEA Verified 05/06/22 22:33 tramadol [TRAMADOL] Allergy Intermediate NA-NAUSEA Veri
[2022-05-07 08:29] LABS: Basophils % 0.3 % (0.1-2.0); Eosinophils # 0.2 K/mm3 (0.0-0.4); Eosinophils % 0.9 % (0.1-12.0); Hematocrit 39.1 % (42.0-52.0); Lymphocytes # 1.4 K/mm3 (0.7-4.5); Lymphocytes % 8.5 % (10-50); Mean Corpuscular HGB Conc 34.3 g/dL (31.8-35.4); Mean Corpuscular Hemoglobin 30.5 pg (27.0-31.2); Mean Corpuscular Volume 89.1 fl (80-94); Mean Platelet Volume 7.6 fl (7.4-10.4); Monocytes # 0.8 K/mm3 (0.1-1.0); Monocytes % 4.9 % (1.7-9.3); Neutrophils # 14.2 K/mm3 (1.8-7.8); Neutrophils % 85.4 % (37.0-80.0); Platelet Count 202 K/mm3 (142-424); Red Blood Count 4.39 M/mm3 (4.60-6.20); Red Cell Distribution Width 12.3 % (11.5-17.5); White Blood Count 16.6 K/mm3 (4.8-10.8)
[2022-05-07 08:30] LABS: Hemoglobin 13.4 g/dL (14.1-18.0); MANUAL DIFFERENTIAL MANUAL DIFFERENTIAL (MANUAL DIFF)
--- NOTE | 2022-05-07 08:32 | HMH.PHACONS ---
- Pharmacy Consult Date: 05/07/22 Time: 08:32 Referring provider: DR BRADY Reason for Consult:: VANCOMYCIN DOSING Allergies and ADEs:: Allergies Allergy/AdvReac Type Severity Reaction Status Date / Time codeine [CODEINE] Allergy Intermediate NA-NAUSEA Verified 05/06/22 22:33 tramadol [TRAMADOL] Allergy Intermediate NA-NAUSEA Verified 05/06/22 22:33 Home Medications:: Home Medications Medication Instructions Recorded Confirmed Type Gabapentin 300 mg PO TID 05/06/22 05/07/22 History Meloxicam 15 mg PO DAILY 05/06/22 05/06/22 History Buprenorphine HCl/Naloxone HCl 2 each SL DAILY 05/07/22 05/07/22 History [Buprenorphin-Naloxon 8-2 mg Sl] Cyclobenzaprine HCl 10 mg PO TIDP PRN 05/07/22 05/07/22 History [Cyclobenzaprine 10mg Tab*] Height: 1.91 m Weight: 94.2 kg Laboratory Results:: Laboratory Results - last 24 hr 05/06/22 14:15: WBC 29.1 H*, RBC 6.02, Hgb 18.6 H, Hct 53.1 H, MCV 88.3, MCH 30.7, MCHC 34.7, RDW 12.4, Plt Count 262, MPV 7.6, Neut % (Auto) 86.7 H, Lymph % (Auto) 6.7 L, Trinity % (Auto) 5.7, Eos % (Auto) 0.6, Baso % (Auto) 0.3, Neut # (Auto) 25.2 H, Lymph # (Auto) 1.9, Trinity # (Auto) 1.7 H, Eos # (Auto) 0.2, Baso # (Auto) 0.1, Total Counted 100, Neutrophils % (Manual) 87 H, Lymphocytes % (Manual) 11, Monocytes % (Manual) 2, Platelet Estimate Normal, RBC Morphology Normal 05/06/22 14:15: Sodium 139, Potassium 3.5, Chloride 98, Carbon Dioxide 27, Anion Gap 17.5 H, BUN 14, Creatinine 0.70, Estimated Creat Clear 195, Estimated GFR 127, Est GFR ( Amer) 154, Glucose 122 H, Calcium 11.0 H, Total Bilirubin 2.3 H, AST 38, ALT 31, Alkaline Phosphatase 112, Troponin I < 0.01, Total Protein 10.0 H, Albumin 5.7 H, Globulin 4.3 H, Albumin/Globulin Ratio 1.3, Amylase 72, Lipase 21 L 05/06/22 14:15: SARS-CoV-2 (PCR) Not detected, Influenza A Untype (PCR) Not detected, Influenza Type B (PCR) Not detected 05/06/22 14:15: ESR 1 05/06/22 14:15: C-Reactive Protein 75.5 H, Procalcitonin 0.078 05/06/22 15:40: Lactate 1.8 05/06/22 17:00: Urine Color Khushbu, Urine Appearance Clear, Urine pH 6.0, Ur Specific Jones >= 1.030, Urine Protein 2+, Urine Glucose (UA) Negative, Urine Ketones 2+, Urine Blood 1+, Urine Nitrate Positive, Urine Bilirubin 1+ A, Urine Urobilinogen 0.2, Ur Leukocyte Esterase Trace, Urine RBC 5-10, Urine WBC 3-5, Ur Squamous Epith Cells 3-5, Urine Bacteria 3+ 05/06/22 17:58: Urine Opiates Screen Positive H, Urine Methadone Screen Negative, Ur Barbituates Screen Negative, Ur Phencyclidine Scrn Negative, Ur Amphetamines Screen Negative, U Benzodiazepines Scrn Negative, Urine Cocaine Screen Negative, U Marijuana (THC) Screen Positive H 05/06/22 20:00: Troponin I < 0.01 05/07/22 08:12: WBC 16.6 H D, RBC 4.39 L D, Hgb 13.4 L D, Hct 39.1 L, MCV 89.1, MCH 30.5, MCHC 34.3, RDW 12.3, Plt Count 202, MPV 7.6, Neut % (Auto) 85.4 H, Lymph % (Auto) 8.5 L, Trinity % (Auto) 4.9, Eos % (Auto) 0.9, Baso % (Auto) 0.3, Neut # (Auto) 14.2 H, Lymph # (Auto) 1.4, Trinity # (Auto) 0.8, Eos # (Auto) 0.2, Baso # (Auto) 0.0 Medical History: Reports:: Palpitations Denies:: Cancer, Diabetes Mellitus Type 1, Diabetes Mellitus Type 2, MRSA Assessment and Plan - Assessment and plan all Dx Assessment and Plan for all problems:: Pharmacokinetic dosing service Objective: Age: 37 yo Serum creatinine: 0.7 mg/dL Height: 75.2 Inches Weight (kg): 94.2 Diagnosis: SIRS Assessment: IBW (kg): 84.96 Dosing wt(kg): 94.2 Estimated Creatinine clearance (ml/min): 130 Clearance limited to 130 ml/min to reduce risk of overdosing. CRCL method: Cockcroft and Gault using ibw(default). Drug selected: Vancomycin Loading dose (mg): Vd (liters): 65.9 (factor used: 0.7 L/kg) Kendrick (hr-1): 0.112 Half life (hrs): 6.19 CLvanco=?? 7.381 L/hr Recommended dose: 2000 mg Interval: 12 hrs Infusion time (hrs): 2.0 Predicted peak (mcg/mL): 36.
--- NOTE | 2022-05-07 08:37 | PC.NURSE ---
notified cardiology of consult
[2022-05-07 08:39] LABS: Lymphocytes % 14 % (10-50); Monocytes % 2 % (2-9); Neutrophils % 84 % (42-76); Platelet Estimate Normal; RBC Morphology Normal; Total Cells Counted 100
[2022-05-07 09:03] LABS: Vancomycin,Trough 5.8 ug/mL (5.0-10.0)
--- NOTE | 2022-05-07 12:11 | HMH.HP ---
*Admission Date: 05/06/22 <Evangelina Fallon 05/07/22 12:26> *History of present illness: Mr. Dash is a 37-year-old who presented to [facility] after 2 days of chest and abdominal and back pain as well as nausea and vomiting. He states it started 2 days ago and has progressively worsened.He describes the pain as lower diffuse chest discomfort. He also has experienced abdominal pain through to his back. He started vomiting and was unable to retain any food or fluids yesterday and was not able to take his medicines.Patient is a known previous drug user and is on Suboxone daily. He also has a history of previous pneumothorax on the right. With evaluation in the emergency room white blood cell count was 29,100. Chemistry showed normal electrolytes with a BUN of 14 and creatinine 0.7. Lactate was normal at 1.8. Patient had multiple CT scans in the emergency room to Include thoracic spine which showed limited degenerative changes;CT of the lumbar spine which revealed chronic L4 spondylosis; CT of the chest which showed no pulmonary embolism, no dissection or aneurysm in the chest, slight right right pleural effusion and mild pleural thickening and atelectasis ;no consolidation or pulmonary edema and paraseptal emphysematous changes in the lung apices ;no pneumothorax; CT of the abdomen/pelvis indicated small amount of pleural fluid on the right with loculated appearance. No bowel obstruction or evidence of appendicitis; no other acute pathology seen. On Arrival to the emergency room patient was afebrile. He was Started on Pipercillin and vancomycin was given ketorolac for pain As well as hydromorphone and Zofran; he also received IV bolus fluids. Since admission patient has received additional pain medicine and at present describes his abdomen and chest as being sore. He Denies shortness of breath. Echocardiogram has just been completed <FallonKariEvangelina 05/07/22 12:26> [facility] History Medical History: Reports:: Lung Disease (Previous pneumothorax x2), Palpitations Denies:: Cancer, Diabetes Mellitus Type 1, Diabetes Mellitus Type 2, MRSA <LeeanneEvangelina 05/07/22 12:26> *Have you ever received a pneumonia vaccine?: No <Evangelina Fallon 05/07/22 12:26> *Have you received a flu vaccine this season?: No <Evangelina Fallon 05/07/22 12:26> Other Surgeries: Yes: Other <FallonEvangelina - 05/07/22 12:26> Amputation: No <Evangelina Fallon 05/07/22 12:26> Fractures: No <FallonEvangelina penn 05/07/22 12:26> Comment: chest tubes <FallonEvangelina 05/07/22 12:26> - *Social History Last grade of school completed: High school graduate <Fallon,Evangelina 05/07/22 12:26> Smoking Status: Current every day smoker <FallonEvangelina 05/07/22 12:26> Tobacco Type: cigarettes <Evangelina Fallon 05/07/22 12:26> # Packs/Day (cigarettes): 1 <FallonEvangelina penn 05/07/22 12:26> Alcohol Intake: never <FallonEvangelina penn 05/07/22 12:26> Substance Use Type: marijuana, opiates, IV drugs <Evangelina Fallon 05/07/22 12:26> Last Used Substance: unknown <Fallon,Evangelina 05/07/22 12:26> *Occupational Status:: employed <LeeanneEvangelina 05/07/22 12:26> Housing: house <FallonEvangelina penn 05/07/22 12:26> Household Members: significant other <FallonEvangelina penn 05/07/22 12:26> *Travel in the last 8 weeks: None <Evangelina Fallon 05/07/22 12:26> Family Hx:: Coronary Artery Disease, Diabetes, Heart Attack, Hypertension <Evangelina Fallon 05/07/22 12:26> Review of Systems - Constitutional Denies fever(s) <Evangelina Fallon 05/07/22 12:26> - Eyes Denies change in vision <Evangelina Fallon 05/07/22 12:26> - ENT Denies ear pain, Denies sore throat <Evangelina Fallon 05/07/22 12:26> - *Cardiovascular Reports chest pain, Reports shortness of breath, Denies leg swelling <Evangelina Fallon 05/07/22 12:26> - *Respiratory Reports cough, Reports shortness of breath, Denies chest congestion, Denies coughing up blood <Evangelina Fallon - 05/07/22 12:26> - *Gastrointestinal Rep
--- NOTE | 2022-05-07 12:58 | HMH.CNCARD ---
History of Present Illness Consult date: 05/07/22 Requesting physician: Thomas Collado Consult reason: chest pain Chief complaint: Chest pain, sepsis, pleaural effusion Additional Medical History:: Past medical hx: previous substance abuse including IV drug use. Reports last use was 4 years ago Recurrent right pneumothorax, last time 4 years ago. Chronic pain History of present illness: 37 year old male with past medical hx listed above presented to ED yesterday with complaint of sharp pain across chest and into back x 2 days plus nausea and vomiting and upper abdominal pain. reports pain started day before yesterday while at rest, worse with cough and deep breathing. continued throughout yesterday and developed vomiting which prompted him to go to ER. Upon presentation to ER WBC was 29.1 which has improved to 16.6. Patient had numerous ct scan of back, chest and abdomen. Degenerative changes noted to spine. CTA of chest showed small right pleural effusion with loculations and mild pleural thickening, paraseptal emphysematous changes in the lung apices. Trop was negative, EKG showed SR rate of 52. patient denies any recent IV drug use, states last used 4 years ago. Currently resting, states still has mild chest pain worse with coughing and deep breathing. [facility] History Medical History: Reports:: Lung Disease (Previous pneumothorax x2), Palpitations Denies:: Cancer, Diabetes Mellitus Type 1, Diabetes Mellitus Type 2, MRSA *Have you ever received a pneumonia vaccine?: No *Have you received a flu vaccine this season?: No Other Surgeries: Yes: Other Amputation: No Fractures: No - *Social History Last grade of school completed: High school graduate Smoking Status: Current every day smoker Tobacco Type: cigarettes # Packs/Day (cigarettes): 1 Alcohol Intake: never Substance Use Type: marijuana, opiates, IV drugs Last Used Substance: unknown *Occupational Status:: employed Housing: house Household Members: significant other *Travel in the last 8 weeks: None Family Hx:: Coronary Artery Disease, Diabetes, Heart Attack, Hypertension Meds Home Medications Medication Instructions Recorded Confirmed Type Gabapentin 300 mg PO TID 05/06/22 05/07/22 History Meloxicam 15 mg PO DAILY 05/06/22 05/06/22 History Buprenorphine HCl/Naloxone HCl 2 each SL DAILY 05/07/22 05/07/22 History [Buprenorphin-Naloxon 8-2 mg Sl] Cyclobenzaprine HCl 10 mg PO TIDP PRN 05/07/22 05/07/22 History [Cyclobenzaprine 10mg Tab*] Allergies Allergy/AdvReac Type Severity Reaction Status Date / Time codeine [CODEINE] Allergy Intermediate NA-NAUSEA Verified 05/06/22 22:33 tramadol [TRAMADOL] Allergy Intermediate NA-NAUSEA Verified 05/06/22 22:33 Exam Vital signs and Labs for Last 24 Hours: Temp Pulse Resp BP Pulse Ox 98.5 F 66 16 110/65 97 05/07/22 12:00 05/07/22 12:00 05/07/22 12:00 05/07/22 12:00 05/07/22 12:00 Laboratory Results - last 24 hr 05/06/22 14:15: WBC 29.1 H*, RBC 6.02, Hgb 18.6 H, Hct 53.1 H, MCV 88.3, MCH 30.7, MCHC 34.7, RDW 12.4, Plt Count 262, MPV 7.6, Neut % (Auto) 86.7 H, Lymph % (Auto) 6.7 L, [place] % (Auto) 5.7, Eos % (Auto) 0.6, Baso % (Auto) 0.3, Neut # (Auto) 25.2 H, Lymph # (Auto) 1.9, [place] # (Auto) 1.7 H, Eos # (Auto) 0.2, Baso # (Auto) 0.1, Total Counted 100, Neutrophils % (Manual) 87 H, Lymphocytes % (Manual) 11, Monocytes % (Manual) 2, Platelet Estimate Normal, RBC Morphology Normal 05/06/22 14:15: Sodium 139, Potassium 3.5, Chloride 98, Carbon Dioxide 27, Anion Gap 17.5 H, BUN 14, Creatinine 0.70, Estimated Creat Clear 195, Estimated GFR 127, Est GFR ( Amer) 154, Glucose 122 H, Calcium 11.0 H, Total Bilirubin 2.3 H, AST 38, ALT 31, Alkaline Phosphatase 112, Troponin I < 0.01, Total Protein 10.0 H, Albumin 5.7 H, Globulin 4.3 H, Albumin/Globulin Ratio 1.3, Amylase 72, Lipase 21 L 05/06/22 14:15: SARS-CoV-2 (PCR) Not detected, Influenza A Untype (PCR) Not detected, Influenza Type B (PCR) Not detected 0
[2022-05-07 14:03] LABS: Vancomycin,Peak 27.3 ug/ml (11-39)
--- NOTE | 2022-05-07 15:27 | PC.NURSE ---
notified pulmonology of consult
--- NOTE | 2022-05-07 17:14 | PC.NURSE ---
pt A&OX4. ambulating to and from bathroom independently. no complaints of pain this shift. O2 sats in high 90s on RA. call light in reach, bed in lowest position and wheels locked.
--- NOTE | 2022-05-07 20:00 | PC.NURSE ---
report called to calos davila ; pt transfered to room 209 with personal belongings in satisfactory condition; VSS; telemetry NSR; pt alert and oriented x4; lungs clear and diminished on right; skin pwd; no edema or distress; no other issues or concerns at this time.
--- NOTE | 2022-05-07 21:00 | PC.NURSE ---
pt admitted to 209 from 261, pt took shower upon arrival, placed pt back on tele after shower
[2022-05-08] VITALS (7 sets, daily range): BP systolic 122–166; BP diastolic 53–74; PULSE 56–88; RESP 17–18; TEMP 36.4–37.1; O2SAT 96–99; BMI 25.2
[2022-05-08 08:27] LABS: MANUAL DIFFERENTIAL MANUAL DIFFERENTIAL (MANUAL DIFF)
[2022-05-08 08:31] LABS: Basophils % 0.3 % (0.1-2.0); Eosinophils # 0.2 K/mm3 (0.0-0.4); Eosinophils % 1.6 % (0.1-12.0); Hematocrit 35.3 % (42.0-52.0); Hemoglobin 12.2 g/dL (14.1-18.0); Lymphocytes # 1.8 K/mm3 (0.7-4.5); Lymphocytes % 17.5 % (10-50); Mean Corpuscular HGB Conc 34.4 g/dL (31.8-35.4); Mean Corpuscular Hemoglobin 30.6 pg (27.0-31.2); Mean Platelet Volume 7.7 fl (7.4-10.4); Monocytes # 0.8 K/mm3 (0.1-1.0); Monocytes % 7.7 % (1.7-9.3); Neutrophils # 7.6 K/mm3 (1.8-7.8); Neutrophils % 72.9 % (37.0-80.0); Platelet Count 190 K/mm3 (142-424); Red Blood Count 3.97 M/mm3 (4.60-6.20); Red Cell Distribution Width 12.3 % (11.5-17.5); White Blood Count 10.4 K/mm3 (4.8-10.8)
--- NOTE | 2022-05-08 08:36 | HMH.ACPN2 ---
<Marion Avalos - Last Filed: 05/08/22 08:36> Internal Medicine - PN: Subj *Date: 05/08/22 *Time: 08:36 Interval history: Patient states he is feeling a little bit better today. He still having some pain in his right upper chest with deep breathing. He also has some pain in his lower abdomen. He slept off and on throughout the night and has not had any food yet this morning. Exam Vital signs and Labs for Last 24 Hours: Temp Pulse Resp BP Pulse Ox 97.7 F 56 L 17 134/73 96 05/08/22 08:00 05/08/22 08:00 05/08/22 08:00 05/08/22 08:00 05/08/22 08:00 Laboratory Results - last 24 hr 05/07/22 08:12: Total Counted 100, Neutrophils % (Manual) 84 H, Lymphocytes % (Manual) 14, Monocytes % (Manual) 2, Platelet Estimate Normal, RBC Morphology Normal 05/07/22 08:30: Vancomycin Trough 5.8 05/07/22 12:55: Vancomycin Peak 27.3 I & O for Last 24 hours: Intake & Output 05/05/22 05/06/22 05/07/22 05/08/22 11:59 11:59 11:59 11:59 Intake Total 1053 / 1053 2835 / 2835 Output Total 700 / 700 0 / 0 Balance 353 / 353 2835 / 2835 Weight 207 lb 10.807 oz 201 lb 1 oz Microbiology Reports for the Last 24 Hours: Microbiology 05/06/22 17:00 Urine,Clean Catch Urine Culture - Preliminary NO GROWTH AFTER 24 HOURS - Constitutional no acute distress - *Routine Respiratory Exam Present: wheezes (On the right on the left), diminished air movement - *Routine Cardiovascular Exam Present: RRR - *Routine Abdominal Exam Present: soft, normoactive bowel sounds, tenderness (Lower abdomen) - *Routine Extremities Exam Absent: cyanosis, clubbing, edema - *Routine Skin Exam Present: warm. Absent: rash - *Routine Neurological Exam Present: alert, oriented X3 Assessment and Plan (1) History of pneumothorax Status: Chronic Category: Medical Code(s): Z87.09 - Personal history of other diseases of the respiratory system (2) Abdominal pain Status: Acute Qualifiers: Abdominal location: generalized Qualified Code(s): R10.84 - Generalized abdominal pain Category: Medical Code(s): R10.9 - Unspecified abdominal pain (3) Back pain Status: Acute Qualifiers: Back pain location: back pain in unspecified location Chronicity: acute Back pain laterality: bilateral Qualified Code(s): M54.9 - Dorsalgia, unspecified Category: Medical Code(s): M54.9 - Dorsalgia, unspecified (4) Chest pain Status: Acute Qualifiers: Chest pain type: chest pain on breathing Qualified Code(s): R07.1 - Chest pain on breathing Category: Medical Code(s): R07.9 - Chest pain, unspecified (5) Leukocytosis Status: Acute Qualifiers: Leukocytosis type: unspecified Qualified Code(s): D72.829 - Elevated white blood cell count, unspecified Category: Medical Code(s): D72.829 - Elevated white blood cell count, unspecified (6) Pleural effusion Status: Acute Category: Medical Code(s): J90 - Pleural effusion, not elsewhere classified (7) SIRS (systemic inflammatory response syndrome) Status: Acute Category: Medical Code(s): R65.10 - Systemic inflammatory response syndrome (SIRS) of non-infectious origin without acute organ dysfunction (8) Vomiting Status: Acute Qualifiers: Vomiting type: unspecified Nausea presence: with nausea Qualified Code(s): R11.2 - Nausea with vomiting, unspecified Category: Medical Code(s): R11.10 - Vomiting, unspecified - Assessment and plan all Dx Assessment and Plan for all problems:: Patient's white blood cell count has normalized. Echo showed an EF of 55%. There was no pericardial effusion and there was trace mitral and tricuspid regurgitation. The inferior vena cava was mildly dilated with normal inspiratory collapse. Cardiology and pulmonology to follow this morning. <Thomas Collado - Last Filed: 05/08/22 13:07> Internal Medicine - PN: Subj *Date: 05/08/22 *Time
[2022-05-08 08:37] LABS: Anion Gap 7.1 mEq/L (5-15); Blood Urea Nitrogen 10 mg/dl (9-20); Calcium 8.8 mg/dl (8.4-10.2); Carbon Dioxide 27 mmol/L (22.0-30.0); Chloride 107 mmol/L (98-107); Creatinine Clearance Estimated 261 mL/min (50-200); Estimated Glomerular Filt Rate 187 ml/min (>60); GFR (African American) 226 ML/MIN (>60); Glucose 105 mg/dl (74-100); Potassium 4.1 mmoL/L (3.5-5.1); Sodium 137 mmol/L (136-145)
--- NOTE | 2022-05-08 08:37 | HMH.PNCARD ---
Subjective Date: 05/08/22 Time: 08:38 Principal diagnosis: atypical chest pain Interval history: Patient reports feeling better, still has some chest and back pain with cough and deep breathing. Echo report from 05/08 below: Conclusion 1. Normal left ventricular size preserved left ventricular systolic function, estimated ejection fraction 55% with no regional wall motion abnormality, diastolic parameters are within normal range. 2. Trace mitral and tricuspid regurgitation. 3. No significant pericardial effusion noted. 4. Inferior vena cava is mildly dilated with normal inspiratory collapse. Exam Vital signs and Labs for Last 24 Hours: Temp Pulse Resp BP Pulse Ox 97.7 F 56 L 17 134/73 96 05/08/22 08:00 05/08/22 08:00 05/08/22 08:00 05/08/22 08:00 05/08/22 08:00 Laboratory Results - last 24 hr 05/07/22 08:12: Total Counted 100, Neutrophils % (Manual) 84 H, Lymphocytes % (Manual) 14, Monocytes % (Manual) 2, Platelet Estimate Normal, RBC Morphology Normal 05/07/22 08:30: Vancomycin Trough 5.8 05/07/22 12:55: Vancomycin Peak 27.3 05/08/22 08:15: WBC 10.4 D, RBC 3.97 L, Hgb 12.2 L, Hct 35.3 L, MCV 89.0, MCH 30.6, MCHC 34.4, RDW 12.3, Plt Count 190, MPV 7.7, Neut % (Auto) 72.9, Lymph % (Auto) 17.5, [place] % (Auto) 7.7, Eos % (Auto) 1.6, Baso % (Auto) 0.3, Neut # (Auto) 7.6, Lymph # (Auto) 1.8, [place] # (Auto) 0.8, Eos # (Auto) 0.2, Baso # (Auto) 0.0 I & O for Last 24 hours: Intake & Output 05/05/22 05/06/22 05/07/22 05/08/22 23:59 23:59 23:59 23:59 Intake Total 323 / 813 3445 / 3445 120 / 120 Output Total 700 / 700 0 / 0 Balance -377 / 113 3445 / 3445 120 / 120 Weight 207 lb 10.807 oz 207 lb 10.807 oz 201 lb 1 oz Microbiology Reports for the Last 24 Hours: Microbiology 05/06/22 17:00 Urine,Clean Catch Urine Culture - Preliminary NO GROWTH AFTER 24 HOURS - Constitutional no acute distress - *Routine Respiratory Exam Present: CTA bilaterally, rhonchi - *Routine Cardiovascular Exam Present: RRR - *Routine Extremities Exam Absent: cyanosis, clubbing, edema - *Routine Skin Exam Present: warm. Absent: rash Progress Note: A&P (1) History of pneumothorax Status: Chronic (2) Abdominal pain Status: Acute (3) Back pain Status: Acute (4) Chest pain Status: Acute (5) Leukocytosis Status: Acute (6) Pleural effusion Status: Acute (7) SIRS (systemic inflammatory response syndrome) Status: Acute (8) Vomiting Status: Acute Assessment and Plan for All Diagnoses:: Atypical Chest pain -worse with deep breathing and coughing -Previous right sided pneumo with chest tube -Trop negative, ekg negative for ischemic changes -CTA chest shows loculated appearance in right pleural space. -WBC 29.1-16.6 -Echo-normal -Recommend pulmonary consult CV stable. Echo was normal, no pericarditis noted. Cards will sign off.
--- NOTE | 2022-05-08 09:40 | HMH.PULMCON ---
*Admission Date: 05/06/22 *Reason for consult:: Chest pain *History of present illness: Mr. Yoon is a 37-year-old male current smoker greater than 52-genn-oenp smoking history used to smoke around 2 packs a day present to ER with nausea vomiting chest pain subsequent CT chest showed right lower lobe pleural effusion pulmonary was called for further management [facility] History Medical History: Reports:: Lung Disease (Previous pneumothorax x2), Palpitations Denies:: Cancer, Diabetes Mellitus Type 1, Diabetes Mellitus Type 2, MRSA *Have you ever received a pneumonia vaccine?: No *Have you received a flu vaccine this season?: No Other Surgeries: Yes: Other Amputation: No Fractures: No - *Social History Last grade of school completed: High school graduate Smoking Status: Current every day smoker Tobacco Type: cigarettes # Packs/Day (cigarettes): 1 Alcohol Intake: never Substance Use Type: marijuana, opiates, IV drugs Last Used Substance: unknown *Occupational Status:: employed Housing: house Household Members: significant other *Travel in the last 8 weeks: None Family Hx:: Coronary Artery Disease, Diabetes, Heart Attack, Hypertension ROS - Cons Reports weakness, Denies fatigue, Denies fever(s) - Eyes Denies change in vision - ENT Denies bleeding gums - Card Reports chest pain - Resp Respiratory: Denies chest congestion, Denies cough, Reports dyspnea on exertion, Denies excessive phlegm production, Denies cough with sputum production, Denies pain with breathing - GI Gastrointestingal: Reports: nausea - [place] Musculoskeletal: Denies muscle weakness - Psych Denies thoughts of hurting/killing others, Denies thoughts of hurting/killing yourself Meds Home Medications Medication Instructions Recorded Confirmed Type RX: Gabapentin 300 mg PO TID 05/06/22 05/07/22 History RX: Meloxicam 15 mg PO DAILY 05/06/22 05/06/22 History Buprenorphine HCl/Naloxone HCl 2 each SL DAILY 05/07/22 05/07/22 History [Buprenorphin-Naloxon 8-2 mg Sl] Cyclobenzaprine HCl 10 mg PO TIDP PRN 05/07/22 05/07/22 History [Cyclobenzaprine 10mg Tab*] Allergies Allergy/AdvReac Type Severity Reaction Status Date / Time codeine [CODEINE] Allergy Intermediate NA-NAUSEA Verified 05/06/22 22:33 tramadol [TRAMADOL] Allergy Intermediate NA-NAUSEA Verified 05/06/22 22:33 Exam - Constitutional Constitutional:: Present: no acute distress, comfortable - HENMT Exam HENMT: Present: normocephalic - Eye Exam Eyes:: Present: normal appearance both eyes and related structures - Neck Exam Neck:: Present: normal visual inspection - Respiratory Exam Respiratory:: Present: able to speak in complete sentences, no respiratory distress. Absent: crackles, wheezing - Cardiovascular Exam Cardiac:: Present: S1, S2 - GI Exam GI:: Present: soft - Skin Exam Skin: Present: warm, no rash - Neurological Exam Neurological: Present: alert, awake - Extremities Exam Extremities: Present: no cyanosis, no clubbing, no edema Internal Medicine - CN: Reslt - Labs CBC & Chem 7: 05/08/22 08:15 05/08/22 08:15 Labs: Short CBC 05/08/22 Range/Units 08:15 WBC 10.4 D (4.8-10.8) K/mm3 Hgb 12.2 L (14.1-18.0) g/dL Hct 35.3 L (42.0-52.0) % Plt Count 190 (142-424) K/mm3 BMP 05/08/22 08:15 Sodium 137 Potassium 4.1 Chloride 107 Carbon Dioxide 27 BUN 10 D Creatinine 0.50 L D Glucose 105 H Calcium 8.8 Assessment and Plan (1) History of pneumothorax Status: Chronic Category: Medical Code(s): Z87.09 - Personal history of other diseases of the respiratory system (2) Abdominal pain Status: Acute Qualifiers: Abdominal location: generalized Qualified Code(s): R10.84 - Generalized abdominal pain Category: Medical Code(s): R10.9 - Unspecified abdominal pain (3) Back pain Status: Acute Qualifiers: Back pain location: back pain in unspecified location Chronicity: acute
--- NOTE | 2022-05-08 10:38 | HMH.PHACONS ---
- Pharmacy Consult Date: 05/08/22 Time: 10:38 Referring provider: DR. NGUYEN Reason for Consult:: VANCOMYCIN LEVELS Allergies and ADEs:: Allergies Allergy/AdvReac Type Severity Reaction Status Date / Time codeine [CODEINE] Allergy Intermediate NA-NAUSEA Verified 05/06/22 22:33 tramadol [TRAMADOL] Allergy Intermediate NA-NAUSEA Verified 05/06/22 22:33 Home Medications:: Home Medications Medication Instructions Recorded Confirmed Type Gabapentin 300 mg PO TID 05/06/22 05/07/22 History Meloxicam 15 mg PO DAILY 05/06/22 05/06/22 History Buprenorphine HCl/Naloxone HCl 2 each SL DAILY 05/07/22 05/07/22 History [Buprenorphin-Naloxon 8-2 mg Sl] Cyclobenzaprine HCl 10 mg PO TIDP PRN 05/07/22 05/07/22 History [Cyclobenzaprine 10mg Tab*] Height: 1.9 m Weight: 91.2 kg Laboratory Results:: Laboratory Results - last 24 hr 05/07/22 12:55: Vancomycin Peak 27.3 05/08/22 08:15: WBC 10.4 D, RBC 3.97 L, Hgb 12.2 L, Hct 35.3 L, MCV 89.0, MCH 30.6, MCHC 34.4, RDW 12.3, Plt Count 190, MPV 7.7, Neut % (Auto) 72.9, Lymph % (Auto) 17.5, [place] % (Auto) 7.7, Eos % (Auto) 1.6, Baso % (Auto) 0.3, Neut # (Auto) 7.6, Lymph # (Auto) 1.8, [place] # (Auto) 0.8, Eos # (Auto) 0.2, Baso # (Auto) 0.0 05/08/22 08:15: Sodium 137, Potassium 4.1, Chloride 107, Carbon Dioxide 27, Anion Gap 7.1, BUN 10 D, Creatinine 0.50 L D, Estimated Creat Clear 261, Estimated GFR 187, Est GFR ( Amer) 226 D, Glucose 105 H, Calcium 8.8 Medical History: Reports:: Lung Disease (Previous pneumothorax x2), Palpitations Denies:: Cancer, Diabetes Mellitus Type 1, Diabetes Mellitus Type 2, MRSA Assessment and Plan (1) History of pneumothorax Status: Chronic Category: Medical Code(s): Z87.09 - Personal history of other diseases of the respiratory system (2) Abdominal pain Status: Acute Qualifiers: Abdominal location: generalized Qualified Code(s): R10.84 - Generalized abdominal pain Category: Medical Code(s): R10.9 - Unspecified abdominal pain (3) Back pain Status: Acute Qualifiers: Back pain location: back pain in unspecified location Chronicity: acute Back pain laterality: bilateral Qualified Code(s): M54.9 - Dorsalgia, unspecified Category: Medical Code(s): M54.9 - Dorsalgia, unspecified (4) Chest pain Status: Acute Qualifiers: Chest pain type: chest pain on breathing Qualified Code(s): R07.1 - Chest pain on breathing Category: Medical Code(s): R07.9 - Chest pain, unspecified (5) Leukocytosis Status: Acute Qualifiers: Leukocytosis type: unspecified Qualified Code(s): D72.829 - Elevated white blood cell count, unspecified Category: Medical Code(s): D72.829 - Elevated white blood cell count, unspecified (6) Pleural effusion Status: Acute Category: Medical Code(s): J90 - Pleural effusion, not elsewhere classified (7) SIRS (systemic inflammatory response syndrome) Status: Acute Category: Medical Code(s): R65.10 - Systemic inflammatory response syndrome (SIRS) of non-infectious origin without acute organ dysfunction (8) Vomiting Status: Acute Qualifiers: Vomiting type: unspecified Nausea presence: with nausea Qualified Code(s): R11.2 - Nausea with vomiting, unspecified Category: Medical Code(s): R11.10 - Vomiting, unspecified - Assessment and plan all Dx Assessment and Plan for all problems:: PATEINT'S VANCOMYCIN LEVELS WERE 5.8 MCG/ML PRIOR TO 2ND DOSE YESTERDAY WITH PEAK OF 27.3 MCG/ML. VANCOMYCIN WAS CONTINUED AT 2000 MG Q12H. WILL CHECK TROUGH LEVEL TONIGHT.
[2022-05-08 11:08] LABS: Eosinophils % 1 % (0-3); Lymphocytes % 17 % (10-50); Monocytes % 6 % (2-9); Neutrophils % 76 % (42-76); Total Cells Counted 100
[2022-05-08 11:14] LABS: Platelet Estimate Normal; RBC Morphology Normal
--- NOTE | 2022-05-09 14:38 | CARE MANAGER ---
Attempted post-discharge phone interview, no answer. left message.
--- NOTE | 2022-05-11 22:58 | HMH.DCSUM ---
General - General Admission date:: 05/07/22 <Thomas Collado - 05/15/22 22:36> 05/07/22 <Marion Avalos - 05/11/22 23:05> Discharge date: 05/08/22 <Marion Avalos - 05/11/22 23:05> HPI HPI: Mr. Dash is a 37-year-old who presented to [facility] after 2 days of chest and abdominal and back pain as well as nausea and vomiting. He states it started 2 days ago and has progressively worsened.He describes the pain as lower diffuse chest discomfort. He also has experienced abdominal pain through to his back. He started vomiting and was unable to retain any food or fluids yesterday and was not able to take his medicines.Patient is a known previous drug user and is on Suboxone daily. He also has a history of previous pneumothorax on the right. With evaluation in the emergency room white blood cell count was 29,100. Chemistry showed normal electrolytes with a BUN of 14 and creatinine 0.7. Lactate was normal at 1.8. Patient had multiple CT scans in the emergency room to Include thoracic spine which showed limited degenerative changes;CT of the lumbar spine which revealed chronic L4 spondylosis; CT of the chest which showed no pulmonary embolism, no dissection or aneurysm in the chest, slight right right pleural effusion and mild pleural thickening and atelectasis ;no consolidation or pulmonary edema and paraseptal emphysematous changes in the lung apices ;no pneumothorax; CT of the abdomen/pelvis indicated small amount of pleural fluid on the right with loculated appearance. No bowel obstruction or evidence of appendicitis; no other acute pathology seen. On Arrival to the emergency room patient was afebrile. He was Started on Pipercillin and vancomycin was given ketorolac for pain As well as hydromorphone and Zofran; he also received IV bolus fluids. Since admission patient has received additional pain medicine and at present describes his abdomen and chest as being sore. He Denies shortness of breath. Echocardiogram has just been completed <Marion Avalos - 05/11/22 23:05> Hospital Course Hospital Course: The patient was started on cefepime and vancomycin with improvement in his white blood cell count. Cardiology and pulmonology were consulted. It was questionable whether his chest CT could represent an empyema versus scarring from previous chest tube placements. The patient did begin feeling better, but continued with some right upper chest pain. His white blood cell count normalized. His echo showed an EF of 55% with no pericardial effusion and trace mitral and tricuspid regurgitation. He had no further vomiting or nausea. He was seen by pulmonology and the film library clerk felt there was no need for further antibiotics and invasive management needed for the noted tiny right pleural effusion. He felt this could be chronic from the patient's prior infection/pneumothorax. He wanted to see the patient in the pulmonology clinic in 2 weeks with repeat chest x-ray. He was stable to be discharged home. <Marion Avalos - 05/11/22 23:05> Objective Vital signs: Temp Pulse Resp BP Pulse Ox 98.7 F 56 L 17 122/70 99 05/08/22 15:16 05/08/22 16:00 05/08/22 15:16 05/08/22 15:16 05/08/22 15:16 <Thomas Collado - 05/15/22 22:36> Temp Pulse Resp BP Pulse Ox 98.7 F 56 L 17 122/70 99 05/08/22 15:16 05/08/22 16:00 05/08/22 15:16 05/08/22 15:16 05/08/22 15:16 <Marion Avalos - 05/11/22 23:05> Narrative: - Constitutional no acute distress - *Routine Respiratory Exam Present: wheezes (On the right on the left), diminished air movement - *Routine Cardiovascular Exam Present: RRR - *Routine Abdominal Exam Present: soft, normoactive bowel sounds, tenderness (Lower abdomen) - *Routine Extremities Exam Absent: cyanosis, clubbing, edema - *Routine Skin Exam Present: warm. Absent: rash - *Routine Neurological Exam Present: alert, oriented X3 <C
== END 2022-05-08 17:45 | disposition home or self-care (01) | DRG 187 ==
LOC: ER 19:45 → 2ND 20:00 → ICU 21:51 → 2ND 05-07 19:41
PROVIDERS: Admitting Provider Family Medicine; Emergency Provider Emergency Medicine; Visit Provider Family Medicine
DX: J90 Pleural effusion, not elsewhere classified (principal); F11.20 Opioid dependence, uncomplicated; F17.210 Nicotine dependence, cigarettes, uncomplicated; Z20.822 Contact with and (suspected) exposure to COVID-19; Z79.899 Other long term (current) drug therapy; M54.9 Dorsalgia, unspecified
CPT/HCPCS: 36415; 71045; 71275; 72129; 72132; 74177; 80048; 80053; 80202; 80305; 81001; 82150; 83605; 83690; 84145; 84484; 85007; 85014; 85018; 85025; 85048; 85049; 85651; 86140; 87040; 87086; 93005; 93306; 99285; C9803; G0378; J0574; J2405; J2543; J3370; Q9967; U0003; U0005